=== PATIENT | male | born 1945 | race Hispanic/Latino ===

== ENCOUNTER 2019-01-27 19:12 | Inpatient (IN) | payer MEDICARE, OTHER ==
[~2019-01-27] VITALS: Ht 170.2 cm; Wt 95.3 kg
--- OUTSIDE RECORDS SUMMARY | 2019-01-27 19:15 | XMS REPORT ---
Author Author [facility] Address Unknown Phone Unavailable Care Team Providers Care Welfare Investigator Name Role Phone ART OGLESBY Unavailable Unavailable Joann WATSON Unavailable Unavailable JUANCHO SILVA Unavailable Unavailable Problems This patient has no known problems. Allergies, Adverse Reactions, Alerts This patient has no known allergies or adverse reactions. Medications This patient has no known medications. Results Test Description Test Time Test Comments Text Results Atomic Results Result Comments POCT-GLUCOSE METER 2019-01-01 12:54:00 POC-GLUCOSE METER (BEAKER) (test hsao=2760) 73 mg/dL 70-110 : TESTED AT [facility] [address] [facility], [address]: Aircraft Launch And Recovery Technician/River Guide [id number] for VELMA MCNAIR HEPATITIS B SURFACE [id number] 07:05:00* Test Item Value Reference Range Comments HEPATITIS B SURFACE ANTIGEN (2) (BEAKER) (test wcub=8185) Nonreactive Nonreactive BASIC METABOLIC [id number] 06:00:00* Test Item Value Reference Range Comments SODIUM (BEAKER) (test bgqy=963) 131 meq/L 136-145 POTASSIUM (BEAKER) (test tqqb=290) 3.8 meq/L 3.5-5.1 Specimen slightly hemolyzed CHLORIDE (BEAKER) (test uyip=454) 102 meq/L 98-107 CO2 (BEAKER) (test ayrw=518) 16 meq/L 22-29 BLOOD UREA NITROGEN (BEAKER) (test pbgb=201) 33 mg/dL 7-21 CREATININE (BEAKER) (test pemy=035) 6.00 mg/dL 0.57-1.25 Specimen slightly hemolyzed GLUCOSE RANDOM (BEAKER) (test zivu=909) 78 mg/dL 70-105 CALCIUM (BEAKER) (test otik=197) 7.9 mg/dL 8.4-10.2 EGFR (BEAKER) (test odqj=3640) 9 mL/min/1.73 sq m ESTIMATED GFR IS NOT ACCURATE CREATININE CLEARANCE IN PREDICTING GLOMERULAR FILTRATION RATE. ESTIMATED GFR IS NOT APPLICABLE FOR DIALYSIS PATIENTS. CBC W/PLT COUNT & AUTO [id number] 05:10:00* Test Item Value Reference Range Comments WHITE BLOOD CELL COUNT (BEAKER) (test swib=564) 10.8 K/ L 3.5-10.5 RED BLOOD CELL COUNT (BEAKER) (test hupd=607) 3.43 M/ L 4.63-6.08 HEMOGLOBIN (BEAKER) (test duxx=986) 11.2 GM/DL 13.7-17.5 HEMATOCRIT (BEAKER) (test xztg=687) 33.8 % 40.1-51.0 MEAN CORPUSCULAR VOLUME (BEAKER) (test bqqx=567) 98.5 fL 79.0-92.2 MEAN CORPUSCULAR HEMOGLOBIN (BEAKER) (test xvrc=590) 32.7 pg 25.7-32.2 MEAN CORPUSCULAR HEMOGLOBIN CONC (BEAKER) (test enpz=708) 33.1 GM/DL 32.3-36.5 RED CELL DISTRIBUTION WIDTH (BEAKER) (test ybme=902) 15.4 % 11.6-14.4 PLATELET COUNT (BEAKER) (test bcgf=092) 307 K/CU MM 150-450 MEAN PLATELET VOLUME (BEAKER) (test fzya=731) 9.7 fL 9.4-12.4 NUCLEATED RED BLOOD CELLS (BEAKER) (test nsmf=816) 0 /100 WBC 0-0 NEUTROPHILS RELATIVE PERCENT (BEAKER) (test kimq=157) 74 % LYMPHOCYTES RELATIVE PERCENT (BEAKER) (test kwnc=766) 16 % MONOCYTES RELATIVE PERCENT (BEAKER) (test jebe=099) 8 % EOSINOPHILS RELATIVE PERCENT (BEAKER) (test qqky=964) 1 % BASOPHILS RELATIVE PERCENT (BEAKER) (test iibv=101) 1 % NEUTROPHILS ABSOLUTE COUNT (BEAKER) (test ijzd=957) 7.94 K/ L 1.78-5.38 LYMPHOCYTES ABSOLUTE COUNT (BEAKER) (test zzvo=354) 1.72 K/ L 1.32-3.57 MONOCYTES ABSOLUTE COUNT (BEAKER) (test noal=813) 0.81 K/ L 0.30-0.82 EOSINOPHILS ABSOLUTE COUNT (BEAKER) (test pbip=847) 0.11 K/ L 0.04-0.54 BASOPHILS ABSOLUTE COUNT (BEAKER) (test wkzo=523) 0.10 K/ L 0.01-0.08 IMMATURE GRANULOCYTES-RELATIVE PERCENT (BEAKER) (test fkxb=5548) 1 % 0-1 POCT-GLUCOSE [id number] 22:45:00* Test Item Value Reference Range Comments POC-GLUCOSE METER (BEAKER) (test zfyf=7528) 124 mg/dL 70-110 : TESTED AT [address], [address]: Aircraft Launch And Recovery Technician/River Guide [id number] for NÉSTOR BUSTILLO POCT-GLUCOSE [id number] 17:44:00* Test Item Value Reference Range Comments POC-GLUCOSE METER (BEAKER) (test mpce=2751) 88 mg/dL 70-110 : TESTED AT [address], [address]: Aircraft Launch And Recovery Technician/River Guide VC=[id number] for Benny Martínez RAD, ABDOMEN/KUB, 1 VIEW [id number] 15:45:00Reason for exam:->stool burden FINAL REPORT Technique: Supine radiographs of the abdomen dated 12/31/2018. HISTORY: Stool burden Comparison: Abdominal radiograph dated 01/16/[address] of the abdomen and pelvis dated 12/30/2018 IMPRESSION:Stool is seen in the descending colon and rectum. No air-filled, dilated loops of bowel to suggest obstruction. No free intraperitoneal air. Bones are osteopenic. Degen erative changes are seen in the spine. Sternal wires are well aligned. Signed: Leonides Calixeport Verified Date/Time: 12/31/2018 15:45:38 Reading Loca tion: [facility] Mammo Reading Room -GLUCOSE [id number] 12:31:00* Test Item Value Reference Range Comments POC-GLUCOSE METER (BEAKER) (test wald=3635) 92 mg/dL 70-110 : TESTED AT [address], [address]: Aircraft Launch And Recovery Technician/River Guide [id number] for Benny Martínez POCT-GLUCOSE [id number] 07:54:00* Test Item Value Reference Range Comments POC-GLUCOSE METER (BEAKER) (test zrpo=0116) 100 mg/dL 70-110 : TESTED AT [facility] [address] [facility], [address]: Aircraft Launch And Recovery Technician/River Guide [id number] for Benny Martínez CBC W/PLT COUNT & AUTO [id number] 06:52:00* Test Item Value Reference Range Comments WHITE BLOOD CELL COUNT (BEAKER) (test mfvc=479) 12.3 K/ L 3.5-10.5 RED BLOOD CELL COUNT (BEAKER) (test thgd=194) 3.52 M/ L 4.63-6.08 HEMOGLOBIN (BEAKER) (test jxat=484) 11.6 GM/DL 13.7-17.5 HEMATOCRIT (BEAKER) (test crgc=799) 35.1 % 40.1-51.0 MEAN CORPUSCULAR VOLUME (BEAKER) (test aonb=174) 99.7 fL 79.0-92.2 MEAN CORPUSCULAR HEMOGLOBIN (BEAKER) (test ldfo=271) 33.0 pg 25.7-32.2 MEAN CORPUSCULAR HEMOGLOBIN CONC (BEAKER) (test gzqt=271) 33.0 GM/DL 32.3-36.5 RED CELL DISTRIBUTION WIDTH (BEAKER) (test myeu=601) 15.5 % 11.6-14.4 PLATELET COUNT (BEAKER) (test cmfh=530) 283 K/CU MM 150-450 MEAN PLATELET VOLUME (BEAKER) (test rxno=489) 9.7 fL 9.4-12.4 NUCLEATED RED BLOOD CELLS (BEAKER) (test gmok=243) 0 /100 WBC 0-0 NEUTROPHILS RELATIVE PERCENT (BEAKER) (test vcvd=549) 83 % LYMPHOCYTES RELATIVE PERCENT (BEAKER) (test qmdy=154) 10 % MONOCYTES RELATIVE PERCENT (BEAKER) (test hxxu=464) 6 % EOSINOPHILS RELATIVE PERCENT (BEAKER) (test hgpc=683) 1 % BASOPHILS RELATIVE PERCENT (BEAKER) (test dpug=858) 1 % NEUTROPHILS ABSOLUTE COUNT (BEAKER) (test nfjy=332) 10.11 K/ L 1.78-5.38 LYMPHOCYTES ABSOLUTE COUNT (BEAKER) (test ovim=270) 1.18 K/ L 1.32-3.57 MONOCYTES ABSOLUTE COUNT (BEAKER) (test yrjq=943) 0.74 K/ L 0.30-0.82 EOSINOPHILS ABSOLUTE COUNT (BEAKER) (test qcvc=535) 0.07 K/ L 0.04-0.54 BASOPHILS ABSOLUTE COUNT (BEAKER) (test ykhm=214) 0.07 K/ L 0.01-0.08 IMMATURE GRANULOCYTES-RELATIVE PERCENT (BEAKER) (test asrb=1325) 1 % 0-1 BASIC METABOLIC [id number] 05:33:00* Test Item Value Reference Range Comments SODIUM (BEAKER) (test zdst=926) 134 meq/L 136-145 POTASSIUM (BEAKER) (test mizu=116) 3.4 meq/L 3.5-5.1 CHLORIDE (BEAKER) (test yldd=906) 105 meq/L 98-107 CO2 (BEAKER) (test etcg=675) 21 meq/L 22-29 BLOOD UREA NITROGEN (BEAKER) (test zcmb=514) 21 mg/dL 7-21 CREATININE (BEAKER) (test mfqu=491) 4.22 mg/dL 0.57-1.25 GLUCOSE RANDOM (BEAKER) (test yyzt=381) 111 mg/dL 70-105 CALCIUM (BEAKER) (test bmux=425) 8.3 mg/dL 8.4-10.2 EGFR (BEAKER) (test gvmu=1747) 14 mL/min/1.73 sq m ESTIMATED GFR IS NOT ACCURATE CREATININE CLEARANCE IN PREDICTING GLOMERULAR FILTRATION RATE. ESTIMATED GFR IS NOT APPLICABLE FOR DIALYSIS PATIENTS. [id number] 05:32:00* Test Item Value Reference Range Comments PHOSPHORUS (BEAKER) (test ufeo=414) 3.2 mg/dL 2.3-4.7 [id number] 05:32:00* Test Item Value Reference Range Comments MAGNESIUM (BEAKER) (test qwlz=107) 2.0 mg/dL 1.6-2.6 CT, [id number] 22:53:00Is this for enterography?->NoFINAL REPORT CLINICAL HISTORY: Nausea and vomiting FINDINGS: Multiple axial images of the abdomen and pelvis were performed after the uncomplicated administration of IV contrast. Oral contrast was not given. This exam was performed according to our departmental dose-optimization program, which includes automated exposure control, adjustment of the mA and/or kV according to patient size and/or use of the iterative reconstruction technique. Comparison:N one. Lower chest: 5 mm noncalcified right middle lobe nodule, stable since 2016 and almost certainly benign. Adjacent to 3 mm nodule. No pleural effusion or pne umothorax. Atherosclerotic coronary artery calcifications. Liver: No significant findings. Gallbladder and biliary tree: No significant findings. Spleen: No sig nificant findings. Adrenal Glands: No significant findings. Kidneys and ureters: Atrophic kidneys. Several subcentimeter renal hypodensities in both kidneys, too small to characterize. Stomach and Duodenum: No significant findings. Pancreas: No significant findings. Bowel: Moderate fecal burden, including a moderate am ount of formed stool in the rectum. No bowel obstruction or pneumatosis intestin shanell. Appendix: Normal. Bladder: No significant findings. Major vascular structu res: Atherosclerotic calcifications Reproductive organs: Enlarged prostate gland Other: No free air, fluid or adenopathy Skeleton: No acute bony abnormality. Co nfluent bridging osteophytes stenosis/ankylosis of the visualized spine. Partial ly visualized fixation hardware in the left femur. IMPRESSION: Moderate fecal bu rden, including a ball of formed stool in the rectum, possibly reflecting consti pation/fecal impaction. Atrophic kidneys suggesting medical renal disease. Latonia d: Grady Su MDReport Verified Date/Time: 12/30/2018 22:53:17 Electro nically signed by: GRADY SU M.D. on 12/30/2018 10:53 PM TROPONIN I 2018-12-30 20:21:00* Test Item Value Reference Range Comments TROPONIN I (VASYL) (test npte=550) 0.03 ng/mL 0.00-0.03 Troponin I (TnI) levels must be interpreted in the context of the presenting sym ptoms and the clinical findings. Elevated TnI levels indicate myocardial damage, but are not specific for ischemic heart disease. Elevated TnI levels are seen in patients with other cardiac conditions (including myocarditis and congestive h eart failure), and slight TnI elevations occur in patients with other conditions , including sepsis, renal failure, acidosis, acute neurological disease, and per sistent tachyarrhythmia.BASIC METABOLIC [id number] 20:18:00* Test Item Value Reference Range Comments SODIUM (BEAKER) (test hncm=207) 134 meq/L 136-145 POTASSIUM (BEAKER) (test cwkt=142) 3.4 meq/L 3.5-5.1 CHLORIDE (BEAKER) (test nktk=731) 103 meq/L 98-107 CO2 (BEAKER) (test quxv=888) 21 meq/L 22-29 BLOOD UREA NITROGEN (BEAKER) (test fpdo=326) 17 mg/dL 7-21 CREATININE (BEAKER) (test mycw=754) 3.48 mg/dL 0.57-1.25 GLUCOSE RANDOM (BEAKER) (test typn=713) 143 mg/dL 70-105 CALCIUM (BEAKER) (test idhb=871) 8.7 mg/dL 8.4-10.2 EGFR (BEAKER) (test jhlo=5334) 17 mL/min/1.73 sq m ESTIMATED GFR IS NOT ACCURATE CREATININE CLEARANCE IN PREDICTING GLOMERULAR FILTRATION RATE. ESTIMATED GFR IS NOT APPLICABLE FOR DIALYSIS PATIENTS. [id number] 20:16:00* Test Item Value Reference Range Comments LIPASE (BEAKER) (test gcsh=769) 91 U/L 8-78 HEPATIC FUNCTION [id number] 20:16:00* Test Item Value Reference Range Comments TOTAL PROTEIN (BEAKER) (test ngar=462) 7.5 gm/dL 6.0-8.3 ALBUMIN (BEAKER) (test aemt=8021) 3.9 g/dL 3.5-5.0 BILIRUBIN TOTAL (BEAKER) (test owcq=080) 0.5 mg/dL 0.2-1.2 BILIRUBIN DIRECT (BEAKER) (test xxxi=728) 0.3 mg/dL 0.1-0.5 ALKALINE PHOSPHATASE (BEAKER) (test yltm=852) 127 U/L 40-150 AST (SGOT) (BEAKER) (test lfsq=140) 20 U/L 5-34 ALT (SGPT) (BEAKER) (test bnpe=327) 16 U/L 6-55 [id number] 19:38:00* Test Item Value Reference Range Comments PROTIME (BEAKER) (test tqkf=210) 14.2 seconds 11.9-14.2 INR (BEAKER) (test mpia=325) 1.2 <=5.9 PARTIAL THROMBOPLASTIN TIME (BEAKER) (test uwez=647) 31.2 seconds 22.5-36.0 Effective 08/04/2018: PT Reference Range ChangeNew: 11.9-14.2 Previous: 11.7-14. 7RECOMMENDED COUMADIN/WARFARIN INR THERAPY RANGESSTANDARD DOSE: 2.0-3.0 Include s: PROPHYLAXIS for venous thrombosis, systemic embolization; TREATMENT for venou s thrombosis and/or pulmonary embolus.HIGH RISK: Target INR is 2.5-3.5 for patie nts wiht mechanical heart valves.CBC W/PLT COUNT & AUTO [id number] 19:29:00* Test Item Value Reference Range Comments WHITE BLOOD CELL COUNT (BEAKER) (test qpzj=858) 12.7 K/ L 3.5-10.5 RED BLOOD CELL COUNT (BEAKER) (test tvlp=520) 3.77 M/ L 4.63-6.08 HEMOGLOBIN (BEAKER) (test bvni=406) 12.3 GM/DL 13.7-17.5 HEMATOCRIT (BEAKER) (test lejn=795) 36.7 % 40.1-51.0 MEAN CORPUSCULAR VOLUME (BEAKER) (test cesw=279) 97.3 fL 79.0-92.2 MEAN CORPUSCULAR HEMOGLOBIN (BEAKER) (test bwao=979) 32.6 pg 25.7-32.2 MEAN CORPUSCULAR HEMOGLOBIN CONC (BEAKER) (test xdim=884) 33.5 GM/DL 32.3-36.5 RED CELL DISTRIBUTION WIDTH (BEAKER) (test hrjk=794) 15.2 % 11.6-14.4 PLATELET COUNT (BEAKER) (test ewxy=752) 299 K/CU MM 150-450 MEAN PLATELET VOLUME (BEAKER) (test bbtb=497) 9.7 fL 9.4-12.4 NUCLEATED RED BLOOD CELLS (BEAKER) (test phtq=617) 0 /100 WBC 0-0 NEUTROPHILS RELATIVE PERCENT (BEAKER) (test pule=673) 86 % LYMPHOCYTES RELATIVE PERCENT (BEAKER) (test pibf=439) 6 % MONOCYTES RELATIVE PERCENT (BEAKER) (test hwjm=238) 7 % EOSINOPHILS RELATIVE PERCENT (BEAKER) (test mdpl=220) 0 % BASOPHILS RELATIVE PERCENT (BEAKER) (test wmkp=966) 1 % NEUTROPHILS ABSOLUTE COUNT (BEAKER) (test kgch=781) 10.95 K/ L 1.78-5.38 LYMPHOCYTES ABSOLUTE COUNT (BEAKER) (test ftpc=976) 0.75 K/ L 1.32-3.57 MONOCYTES ABSOLUTE COUNT (BEAKER) (test epxq=005) 0.82 K/ L 0.30-0.82 EOSINOPHILS ABSOLUTE COUNT (BEAKER) (test kmks=186) 0.05 K/ L 0.04-0.54 BASOPHILS ABSOLUTE COUNT (BEAKER) (test ifiu=082) 0.06 K/ L 0.01-0.08 IMMATURE GRANULOCYTES-RELATIVE PERCENT (BEAKER) (test krgh=8886) 1 % 0-1 ANG, AV-SHUNT, CATH INTRO WITH [id number] 12:42:00Reason for Exam:->esrd FINAL REPORT AV fistula examination : Pertinent clini willie information: Decreased clearanceModality: fluoroscopy and ultrasoundConscio us Sedation: noneDuring the procedure with conscious sedation, the patient was monitored continuously with pulse oximetry and electrocardiography by the attend ing physician and registered nurse. Physician Patient face to face intraservice time: [ ]Anesthesia: One percent Lidocaine injected subcutaneously at the ins ertion sites.Approach: Left forearm . One access site(s) For maximum ster ile barrier protection a mask, cap, sterile gloves, sterile drape, sterile gown, and a cutaneous antiseptic was utilized.Fluoroscopy time: 1.3 minutes. 19 images were submitted for interpretation Technique: After informed written consent was obtained, the patient was prepped and draped in the usual sterile manner. Ac cess was obtained using sonography of the fistula. Ultrasound was utilized to ev aluate patency and to decrease the risk of hematoma Images were archived to PAC S. The left forearm fistula was catheterized once . A guide wire was advanced into the fistula. A catheter was placed into the fistula. Multiple images were obtained. Arterial venous anastomosis:Spasm was encountered at the anastomosis. A small pseudoaneurysm was visualized at the radial artery. A hemodynamically significant stenosis was not visualized. There was no evidence of a draining vein stenosis. There was evidence of a pseudoaneurysm. The central vascu larity documents no abnormality. Vital signs were monitored continuously by a nurse and attending radiologist. Impression:Specifically a focal stenosis within the draining AV fistula was not identified. Two pseudoaneurysms were vis ualized. Spasm was encountered at the AV anastomosis with a small radial artery pseudoaneurysm. Signed: Jenny Cochran Verified Date/Time: 09/10/2018 12: 42:24 Reading Location: [facility] P048 Angio Body Reading Room C METABOLIC PANEL 2018-09-08 09:56:00* Test Item Value Reference Range Comments SODIUM (BEAKER) (test ivgi=475) 139 meq/L 136-145 POTASSIUM (BEAKER) (test wyfm=394) 3.9 meq/L 3.5-5.1 CHLORIDE (BEAKER) (test rxhr=396) 92 meq/L 98-107 CO2 (BEAKER) (test pzar=593) 34 meq/L 22-29 BLOOD UREA NITROGEN (BEAKER) (test wmrs=775) 39 mg/dL 7-21 CREATININE (BEAKER) (test buxh=317) 5.84 mg/dL 0.57-1.25 GLUCOSE RANDOM (BEAKER) (test chwa=540) 132 mg/dL 70-105 CALCIUM (BEAKER) (test oooc=679) 8.9 mg/dL 8.4-10.2 EGFR (BEAKER) (test dynp=2355) 10 mL/min/1.73 sq m ESTIMATED GFR IS NOT ACCURATE CREATININE CLEARANCE IN PREDICTING GLOMERULAR FILTRATION RATE. ESTIMATED GFR IS NOT APPLICABLE FOR DIALYSIS PATIENTS. [id number] 09:38:00* Test Item Value Reference Range Comments PARTIAL THROMBOPLASTIN TIME (BEAKER) (test fhmx=456) 24.3 seconds 22.5-36.0 PROTHROMBIN TIME/[id number] 09:37:00* Test Item Value Reference Range Comments PROTIME (BEAKER) (test cgki=627) 14.3 seconds 11.9-14.2 INR (BEAKER) (test jyna=899) 1.2 <=5.9 Effective 08/04/2018: PT Reference Range ChangeNew: 11.9-14.2 Previous: 11.7-14. 7RECOMMENDED COUMADIN/WARFARIN INR THERAPY RANGESSTANDARD DOSE: 2.0-3.0 Include s: PROPHYLAXIS for venous thrombosis, systemic embolization; TREATMENT for venou s thrombosis and/or pulmonary embolus.HIGH RISK: Target INR is 2.5-3.5 for patie nts wiht mechanical heart valves.CBC W/PLT COUNT & AUTO [id number] 09:30:00* Test Item Value Reference Range Comments WHITE BLOOD CELL COUNT (BEAKER) (test ocqh=812) 7.1 K/ L 3.5-10.5 RED BLOOD CELL COUNT (BEAKER) (test rgrq=425) 3.81 M/ L 4.63-6.08 HEMOGLOBIN (BEAKER) (test hodh=343) 12.0 GM/DL 13.7-17.5 HEMATOCRIT (BEAKER) (test mdth=132) 37.1 % 40.1-51.0 MEAN CORPUSCULAR VOLUME (BEAKER) (test pyri=457) 97.4 fL 79.0-92.2 MEAN CORPUSCULAR HEMOGLOBIN (BEAKER) (test hlkb=316) 31.5 pg 25.7-32.2 MEAN CORPUSCULAR HEMOGLOBIN CONC (BEAKER) (test nfjs=289) 32.3 GM/DL 32.3-36.5 RED CELL DISTRIBUTION WIDTH (BEAKER) (test jrsl=534) 18.4 % 11.6-14.4 PLATELET COUNT (BEAKER) (test ipfp=937) 318 K/CU MM 150-450 MEAN PLATELET VOLUME (BEAKER) (test zext=667) 9.0 fL 9.4-12.4 NUCLEATED RED BLOOD CELLS (BEAKER) (test puxk=971) 0 /100 WBC 0-0 NEUTROPHILS RELATIVE PERCENT (BEAKER) (test srxs=908) 69 % LYMPHOCYTES RELATIVE PERCENT (BEAKER) (test qpwh=337) 20 % MONOCYTES RELATIVE PERCENT (BEAKER) (test wnhe=042) 8 % EOSINOPHILS RELATIVE PERCENT (BEAKER) (test gkyw=026) 1 % BASOPHILS RELATIVE PERCENT (BEAKER) (test nprc=066) 1 % NEUTROPHILS ABSOLUTE COUNT (BEAKER) (test ujoo=597) 4.88 K/ L 1.78-5.38 LYMPHOCYTES ABSOLUTE COUNT (BEAKER) (test wmrk=497) 1.39 K/ L 1.32-3.57 MONOCYTES ABSOLUTE COUNT (BEAKER) (test ffjd=630) 0.58 K/ L 0.30-0.82 EOSINOPHILS ABSOLUTE COUNT (BEAKER) (test hwbb=540) 0.09 K/ L 0.04-0.54 BASOPHILS ABSOLUTE COUNT (BEAKER) (test yptn=660) 0.06 K/ L 0.01-0.08 IMMATURE GRANULOCYTES-RELATIVE PERCENT (BEAKER) (test oidk=9229) 1 % 0-1 POCT-GLUCOSE [id number] 16:58:00* Test Item Value Reference Range Comments POC-GLUCOSE METER (BEAKER) (test bifm=2708) 200 mg/dL 70-110 TESTED AT [address] [address] [id number] 16:22:00* Test Item Value Reference Range Comments CARBAMAZEPINE LEVEL (BEAKER) (test flty=624) 4.6 ug/mL 4.0-12.0 BASIC METABOLIC [id number] 15:23:00* Test Item Value Reference Range Comments SODIUM (BEAKER) (test swwo=766) 134 meq/L 136-145 POTASSIUM (BEAKER) (test mwwu=029) 5.1 meq/L 3.5-5.1 CHLORIDE (BEAKER) (test ddpm=583) 91 meq/L 98-107 CO2 (BEAKER) (test bjpa=476) 21 meq/L 22-29 BLOOD UREA NITROGEN (BEAKER) (test qdgp=386) 83 mg/dL 7-21 CREATININE (BEAKER) (test zzpr=996) 9.54 mg/dL 0.57-1.25 GLUCOSE RANDOM (BEAKER) (test yman=387) 186 mg/dL 70-105 CALCIUM (BEAKER) (test ughu=533) 9.5 mg/dL 8.4-10.2 EGFR (BEAKER) (test azix=7364) 5 mL/min/1.73 sq m ESTIMATED GFR IS NOT ACCURATE CREATININE CLEARANCE IN PREDICTING GLOMERULAR FILTRATION RATE. ESTIMATED GFR IS NOT APPLICABLE FOR DIALYSIS PATIENTS. [id number] 15:12:00* Test Item Value Reference Range Comments PHOSPHORUS (BEAKER) (test jryd=068) 6.6 mg/dL 2.3-4.7 POCT-GLUCOSE [id number] 13:54:00* Test Item Value Reference Range Comments POC-GLUCOSE METER (BEAKER) (test vcek=4998) 136 mg/dL 70-110 TESTED AT [address] [address] POCT-GLUCOSE [id number] 12:37:00* Test Item Value Reference Range Comments POC-GLUCOSE METER (BEAKER) (test jjrc=7324) 107 mg/dL 70-110 TESTED AT [address] [address] POCT-GLUCOSE [id number] 07:30:00* Test Item Value Reference Range Comments POC-GLUCOSE METER (BEAKER) (test xkpu=0769) 188 mg/dL 70-110 TESTED AT [address] [address] POCT-GLUCOSE [id number] 21:02:00* Test Item Value Reference Range Comments POC-GLUCOSE METER (BEAKER) (test xxqa=8320) 233 mg/dL 70-110 TESTED AT [address] [address] POCT-GLUCOSE [id number] 17:22:00* Test Item Value Reference Range Comments POC-GLUCOSE METER (BEAKER) (test bpzb=7196) 259 mg/dL 70-110 TESTED AT [address] [address] POCT-GLUCOSE [id number] 13:08:00* Test Item Value Reference Range Comments POC-GLUCOSE METER (BEAKER) (test wrtl=7499) 256 mg/dL 70-110 TESTED AT [address] [address] POCT-GLUCOSE [id number] 07:34:00* Test Item Value Reference Range Comments POC-GLUCOSE METER (BEAKER) (test vpab=9227) 271 mg/dL 70-110 TESTED AT [address] [address] HEMOGLOBIN AND [id number] 06:50:00* Test Item Value Reference Range Comments HEMOGLOBIN (BEAKER) (test rfej=186) 10.2 GM/DL 13.7-17.5 HEMATOCRIT (BEAKER) (test akyy=094) 31.1 % 40.1-51.0 POCT-GLUCOSE [id number] 21:41:00* Test Item Value Reference Range Comments POC-GLUCOSE METER (BEAKER) (test wmec=3270) 246 mg/dL 70-110 TESTED AT [address] [address] POCT-GLUCOSE [id number] 19:03:00* Test Item Value Reference Range Comments POC-GLUCOSE METER (BEAKER) (test psem=9630) 262 mg/dL 70-110 TESTED AT [facility] [address] [facility] [address] POCT-GLUCOSE [id number] 17:57:00* Test Item Value Reference Range Comments POC-GLUCOSE METER (BEAKER) (test glhf=6305) 230 mg/dL 70-110 TESTED AT [place] [id number] [facility] [address] POCT-GLUCOSE [id number] 14:15:00* Test Item Value Reference Range Comments POC-GLUCOSE METER (BEAKER) (test bfwr=6359) 202 mg/dL 70-110 TESTED AT [address] [address] POCT-GLUCOSE [id number] 09:53:00* Test Item Value Reference Range Comments POC-GLUCOSE METER (BEAKER) (test akkv=0888) 220 mg/dL 70-110 TESTED AT [address] [address] POCT-GLUCOSE [id number] 07:30:00* Test Item Value Reference Range Comments POC-GLUCOSE METER (BEAKER) (test hqvc=2005) 202 mg/dL 70-110 TESTED AT [place] [id number] [facility] [address] BASIC METABOLIC [id number] 06:08:00* Test Item Value Reference Range Comments SODIUM (BEAKER) (test tmuc=001) 131 meq/L 136-145 POTASSIUM (BEAKER) (test nuyt=314) 5.2 meq/L 3.5-5.1 Specimen slightly hemolyzed CHLORIDE (BEAKER) (test gqim=408) 92 meq/L 98-107 CO2 (BEAKER) (test hbtn=764) 22 meq/L 22-29 BLOOD UREA NITROGEN (BEAKER) (test vjnh=043) 110 mg/dL 7-21 CREATININE (BEAKER) (test uczu=939) 10.87 mg/dL 0.57-1.25 Specimen slightly hemolyzed GLUCOSE RANDOM (BEAKER) (test afeb=449) 176 mg/dL 70-105 CALCIUM (BEAKER) (test kqag=432) 8.2 mg/dL 8.4-10.2 EGFR (BEAKER) (test suhk=0148) 5 mL/min/1.73 sq m ESTIMATED GFR IS NOT ACCURATE CREATININE CLEARANCE IN PREDICTING GLOMERULAR FILTRATION RATE. ESTIMATED GFR IS NOT APPLICABLE FOR DIALYSIS PATIENTS. [id number] 06:06:00* Test Item Value Reference Range Comments MAGNESIUM (BEAKER) (test sost=872) 2.8 mg/dL 1.6-2.6 Specimen slightly hemolyzed [id number] 06:06:00* Test Item Value Reference Range Comments PHOSPHORUS (BEAKER) (test evvr=940) 6.9 mg/dL 2.3-4.7 Specimen slightly hemolyzed POCT-GLUCOSE [id number] 22:14:00* Test Item Value Reference Range Comments POC-GLUCOSE METER (BEAKER) (test frnb=1320) 240 mg/dL 70-110 TESTED AT [address] [address] POCT-GLUCOSE [id number] 17:40:00* Test Item Value Reference Range Comments POC-GLUCOSE METER (BEAKER) (test ntlu=7762) 252 mg/dL 70-110 TESTED AT [address] [address] POCT-GLUCOSE [id number] 13:04:00* Test Item Value Reference Range Comments POC-GLUCOSE METER (BEAKER) (test ofpr=5108) 179 mg/dL 70-110 TESTED AT [address] [address] POCT-GLUCOSE [id number] 08:34:00* Test Item Value Reference Range Comments POC-GLUCOSE METER (BEAKER) (test xpgq=2690) 184 mg/dL 70-110 TESTED AT [address] [address] BASIC METABOLIC [id number] 07:14:00* Test Item Value Reference Range Comments SODIUM (BEAKER) (test njyr=167) 137 meq/L 136-145 POTASSIUM (BEAKER) (test xmju=761) 4.6 meq/L 3.5-5.1 CHLORIDE (BEAKER) (test jmeu=963) 94 meq/L 98-107 CO2 (BEAKER) (test hoqj=233) 25 meq/L 22-29 BLOOD UREA NITROGEN (BEAKER) (test zbca=515) 81 mg/dL 7-21 CREATININE (BEAKER) (test nyuf=300) 8.82 mg/dL 0.57-1.25 GLUCOSE RANDOM (BEAKER) (test nioc=015) 123 mg/dL 70-105 CALCIUM (BEAKER) (test wkcn=329) 9.1 mg/dL 8.4-10.2 EGFR (BEAKER) (test xlby=3520) 6 mL/min/1.73 sq m ESTIMATED GFR IS NOT ACCURATE CREATININE CLEARANCE IN PREDICTING GLOMERULAR FILTRATION RATE. ESTIMATED GFR IS NOT APPLICABLE FOR DIALYSIS PATIENTS. CBC W/PLT COUNT & AUTO [id number] 06:20:00* Test Item Value Reference Range Comments WHITE BLOOD CELL COUNT (BEAKER) (test vmnw=860) 8.0 K/ L 3.5-10.5 RED BLOOD CELL COUNT (BEAKER) (test pwfm=815) 2.54 M/ L 4.63-6.08 HEMOGLOBIN (BEAKER) (test buml=525) 8.2 GM/DL 13.7-17.5 HEMATOCRIT (BEAKER) (test bxky=686) 25.1 % 40.1-51.0 MEAN CORPUSCULAR VOLUME (BEAKER) (test wjnw=153) 98.8 fL 79.0-92.2 MEAN CORPUSCULAR HEMOGLOBIN (BEAKER) (test ysis=768) 32.3 pg 25.7-32.2 MEAN CORPUSCULAR HEMOGLOBIN CONC (BEAKER) (test lahy=912) 32.7 GM/DL 32.3-36.5 RED CELL DISTRIBUTION WIDTH (BEAKER) (test fgdu=108) 13.6 % 11.6-14.4 PLATELET COUNT (BEAKER) (test rkls=389) 414 K/CU MM 150-450 MEAN PLATELET VOLUME (BEAKER) (test rbok=564) 10.2 fL 9.4-12.4 NUCLEATED RED BLOOD CELLS (BEAKER) (test fmhr=618) 0 /100 WBC 0-0 NEUTROPHILS RELATIVE PERCENT (BEAKER) (test yppf=444) 61 % LYMPHOCYTES RELATIVE PERCENT (BEAKER) (test sbkb=954) 23 % MONOCYTES RELATIVE PERCENT (BEAKER) (test fucy=082) 10 % EOSINOPHILS RELATIVE PERCENT (BEAKER) (test wodq=759) 3 % BASOPHILS RELATIVE PERCENT (BEAKER) (test ctii=277) 1 % NEUTROPHILS ABSOLUTE COUNT (BEAKER) (test wdvu=181) 4.87 K/ L 1.78-5.38 LYMPHOCYTES ABSOLUTE COUNT (BEAKER) (test kywc=390) 1.88 K/ L 1.32-3.57 MONOCYTES ABSOLUTE COUNT (BEAKER) (test pdup=962) 0.84 K/ L 0.30-0.82 EOSINOPHILS ABSOLUTE COUNT (BEAKER) (test osir=363) 0.21 K/ L 0.04-0.54 BASOPHILS ABSOLUTE COUNT (BEAKER) (test wzhq=398) 0.06 K/ L 0.01-0.08 IMMATURE GRANULOCYTES-RELATIVE PERCENT (BEAKER) (test mqim=5762) 2 % 0-1 POCT-GLUCOSE [id number] 22:13:00* Test Item Value Reference Range Comments POC-GLUCOSE METER (BEAKER) (test dwmo=3183) 137 mg/dL 70-110 TESTED AT [address] [address] POCT-GLUCOSE [id number] 17:11:00* Test Item Value Reference Range Comments POC-GLUCOSE METER (BEAKER) (test pzdz=8787) 207 mg/dL 70-110 TESTED AT [address] [address] POCT-GLUCOSE [id number] 13:39:00* Test Item Value Reference Range Comments POC-GLUCOSE METER (BEAKER) (test fpnc=8515) 217 mg/dL 70-110 TESTED AT [address] [address] POCT-GLUCOSE [id number] 08:55:00* Test Item Value Reference Range Comments POC-GLUCOSE METER (BEAKER) (test sfzs=4040) 195 mg/dL 70-110 TESTED AT [address] [address] BASIC METABOLIC [id number] 07:56:00* Test Item Value Reference Range Comments SODIUM (BEAKER) (test metg=111) 138 meq/L 136-145 POTASSIUM (BEAKER) (test mpcg=495) 4.4 meq/L 3.5-5.1 CHLORIDE (BEAKER) (test nxrs=696) 95 meq/L 98-107 CO2 (BEAKER) (test qavu=290) 26 meq/L 22-29 BLOOD UREA NITROGEN (BEAKER) (test uhmx=721) 54 mg/dL 7-21 CREATININE (BEAKER) (test vsto=004) 6.88 mg/dL 0.57-1.25 GLUCOSE RANDOM (BEAKER) (test kihx=155) 160 mg/dL 70-105 CALCIUM (BEAKER) (test rogi=869) 9.4 mg/dL 8.4-10.2 EGFR (BEAKER) (test lrko=9869) 8 mL/min/1.73 sq m ESTIMATED GFR IS NOT ACCURATE CREATININE CLEARANCE IN PREDICTING GLOMERULAR FILTRATION RATE. ESTIMATED GFR IS NOT APPLICABLE FOR DIALYSIS PATIENTS. CBC W/PLT COUNT & AUTO [id number] 07:27:00* Test Item Value Reference Range Comments WHITE BLOOD CELL COUNT (BEAKER) (test dnff=712) 6.9 K/ L 3.5-10.5 RED BLOOD CELL COUNT (BEAKER) (test naky=424) 2.58 M/ L 4.63-6.08 HEMOGLOBIN (BEAKER) (test pixb=633) 8.4 GM/DL 13.7-17.5 HEMATOCRIT (BEAKER) (test wetd=321) 25.6 % 40.1-51.0 MEAN CORPUSCULAR VOLUME (BEAKER) (test beir=790) 99.2 fL 79.0-92.2 MEAN CORPUSCULAR HEMOGLOBIN (BEAKER) (test zpqr=562) 32.6 pg 25.7-32.2 MEAN CORPUSCULAR HEMOGLOBIN CONC (BEAKER) (test zvpy=633) 32.8 GM/DL 32.3-36.5 RED CELL DISTRIBUTION WIDTH (BEAKER) (test lzbl=205) 13.8 % 11.6-14.4 PLATELET COUNT (BEAKER) (test qcvm=370) 402 K/CU MM 150-450 MEAN PLATELET VOLUME (BEAKER) (test njcj=895) 10.1 fL 9.4-12.4 NUCLEATED RED BLOOD CELLS (BEAKER) (test fbex=002) 0 /100 WBC 0-0 NEUTROPHILS RELATIVE PERCENT (BEAKER) (test ccqy=401) 66 % LYMPHOCYTES RELATIVE PERCENT (BEAKER) (test lxum=014) 20 % MONOCYTES RELATIVE PERCENT (BEAKER) (test lpwp=556) 10 % EOSINOPHILS RELATIVE PERCENT (BEAKER) (test ngjc=856) 2 % BASOPHILS RELATIVE PERCENT (BEAKER) (test pzha=079) 1 % NEUTROPHILS ABSOLUTE COUNT (BEAKER) (test wmer=595) 4.53 K/ L 1.78-5.38 LYMPHOCYTES ABSOLUTE COUNT (BEAKER) (test jkqr=643) 1.39 K/ L 1.32-3.57 MONOCYTES ABSOLUTE COUNT (BEAKER) (test ncav=250) 0.70 K/ L 0.30-0.82 EOSINOPHILS ABSOLUTE COUNT (BEAKER) (test ywqq=601) 0.15 K/ L 0.04-0.54 BASOPHILS ABSOLUTE COUNT (BEAKER) (test clcz=978) 0.05 K/ L 0.01-0.08 IMMATURE GRANULOCYTES-RELATIVE PERCENT (BEAKER) (test uece=7706) 1 % 0-1 POCT-GLUCOSE [id number] 23:10:00* Test Item Value Reference Range Comments POC-GLUCOSE METER (BEAKER) (test exbu=1296) 140 mg/dL 70-110 TESTED AT [address] [address] POCT-GLUCOSE [id number] 16:58:00* Test Item Value Reference Range Comments POC-GLUCOSE METER (BEAKER) (test hhcj=2919) 188 mg/dL 70-110 TESTED AT [address] [address] POCT-GLUCOSE [id number] 13:05:00* Test Item Value Reference Range Comments POC-GLUCOSE METER (BEAKER) (test rend=1088) 167 mg/dL 70-110 TESTED AT [address] [address] BASIC METABOLIC [id number] 08:20:00* Test Item Value Reference Range Comments SODIUM (BEAKER) (test jlmf=857) 138 meq/L 136-145 POTASSIUM (BEAKER) (test fsgo=100) 5.0 meq/L 3.5-5.1 CHLORIDE (BEAKER) (test yswe=818) 96 meq/L 98-107 CO2 (BEAKER) (test ymta=164) 26 meq/L 22-29 BLOOD UREA NITROGEN (BEAKER) (test mneh=489) 70 mg/dL 7-21 CREATININE (BEAKER) (test lecv=237) 8.82 mg/dL 0.57-1.25 GLUCOSE RANDOM (BEAKER) (test nxxc=363) 190 mg/dL 70-105 CALCIUM (BEAKER) (test yufp=351) 9.5 mg/dL 8.4-10.2 EGFR (BEAKER) (test nbjf=5835) 6 mL/min/1.73 sq m ESTIMATED GFR IS NOT ACCURATE CREATININE CLEARANCE IN PREDICTING GLOMERULAR FILTRATION RATE. ESTIMATED GFR IS NOT APPLICABLE FOR DIALYSIS PATIENTS. POCT-GLUCOSE [id number] 07:44:00* Test Item Value Reference Range Comments POC-GLUCOSE METER (BEAKER) (test eqwa=9702) 232 mg/dL 70-110 TESTED AT [facility] [address] [facility] [address] CBC W/PLT COUNT & AUTO [id number] 07:06:00* Test Item Value Reference Range Comments WHITE BLOOD CELL COUNT (BEAKER) (test drma=068) 8.2 K/ L 3.5-10.5 RED BLOOD CELL COUNT (BEAKER) (test uztm=985) 2.97 M/ L 4.63-6.08 HEMOGLOBIN (BEAKER) (test ncvd=921) 9.5 GM/DL 13.7-17.5 HEMATOCRIT (BEAKER) (test kgra=717) 29.3 % 40.1-51.0 MEAN CORPUSCULAR VOLUME (BEAKER) (test ozin=126) 98.7 fL 79.0-92.2 MEAN CORPUSCULAR HEMOGLOBIN (BEAKER) (test orcz=539) 32.0 pg 25.7-32.2 MEAN CORPUSCULAR HEMOGLOBIN CONC (BEAKER) (test uksl=358) 32.4 GM/DL 32.3-36.5 RED CELL DISTRIBUTION WIDTH (BEAKER) (test fgpl=253) 13.8 % 11.6-14.4 PLATELET COUNT (BEAKER) (test dfef=492) 346 K/CU MM 150-450 MEAN PLATELET VOLUME (BEAKER) (test rema=074) 10.4 fL 9.4-12.4 NUCLEATED RED BLOOD CELLS (BEAKER) (test jlnm=555) 0 /100 WBC 0-0 NEUTROPHILS RELATIVE PERCENT (BEAKER) (test yggr=041) 76 % LYMPHOCYTES RELATIVE PERCENT (BEAKER) (test nacv=737) 15 % MONOCYTES RELATIVE PERCENT (BEAKER) (test klrt=812) 8 % EOSINOPHILS RELATIVE PERCENT (BEAKER) (test ijia=608) 1 % BASOPHILS RELATIVE PERCENT (BEAKER) (test dnjv=177) 1 % NEUTROPHILS ABSOLUTE COUNT (BEAKER) (test nqam=148) 6.17 K/ L 1.78-5.38 LYMPHOCYTES ABSOLUTE COUNT (BEAKER) (test lapm=742) 1.18 K/ L 1.32-3.57 MONOCYTES ABSOLUTE COUNT (BEAKER) (test omyx=704) 0.61 K/ L 0.30-0.82 EOSINOPHILS ABSOLUTE COUNT (BEAKER) (test ijai=128) 0.10 K/ L 0.04-0.54 BASOPHILS ABSOLUTE COUNT (BEAKER) (test iayx=882) 0.05 K/ L 0.01-0.08 IMMATURE GRANULOCYTES-RELATIVE PERCENT (BEAKER) (test bddc=4081) 1 % 0-1 POCT-GLUCOSE [id number] 22:05:00* Test Item Value Reference Range Comments POC-GLUCOSE METER (BEAKER) (test ceul=5198) 209 mg/dL 70-110 TESTED AT [facility] [address] [facility] [address] POCT-GLUCOSE [id number] 17:28:00* Test Item Value Reference Range Comments POC-GLUCOSE METER (BEAKER) (test dasm=0541) 240 mg/dL 70-110 TESTED AT [place] [id number] [facility] [address] PUL PERF IMAGING, PARTIC, [id number] 16:50:00FINAL REPORT PROCEDURE: V/Q LUNG SCAN CPT CODE: 19009 INDICATION: Chest pain PROTOCOL: 10.9 mCi of Xe-133 gas was administered by inhalation. Single breath and rebreathing/washout images were obtained in the anterior and the posterior projections. 4.1 mCi of Tc-99m MAA was then injected intravenously, and static perfusion images were obtained in multiple projections. FINDINGS: Ventilation: Limited evaluation due to failure of adequate patient cooperation. However, initial tracer distribution appears physiological. Washout is difficult to assess but in setting of the limited eval uation appears to be essentially normal. Perfusion: Tracer distribution is physiological. IMPRESSION: Normal perfusion lung scan. Signed: Art Anderson MDReport Verified Date/Time: 01/16/2017 16:50:19 Reading Location: [address] Reading Room TINE KINASE (CK), TOTAL AND [id number] 15:46:00* Test Item Value Reference Range Comments CREATINE KINASE TOTAL (BEAKER) (test xzai=101) 249 U/L 29-200 CREATINE KINASE-MB (BEAKER) (test klbs=664) 1.5 ng/mL 0.0-6.6 CREATINE KINASE-MB INDEX (BEAKER) (test tpxe=177) 0.6 % CK-MB Reference Range:<6.7 Normal6.7-10.0 Borderline>10.0 Abnormal TROPONIN [id number] 15:46:00* Test Item Value Reference Range Comments TROPONIN I (BEAKER) (test ytwt=087) 0.03 ng/mL 0.00-0.03 Troponin I (TnI) levels must be interpreted in the context of the presenting sym ptoms and the clinical findings. Elevated TnI levels indicate myocardial damage, but are not specific for ischemic heart disease. Elevated TnI levels are seen in patients with other cardiac conditions (including myocarditis and congestive h eart failure), and slight TnI elevations occur in patients with other conditions , including sepsis, renal failure, acidosis, acute neurological disease, and per sistent tachyarrhythmia.HEMOGLOBIN AND [id number] 15:40:00* Test Item Value Reference Range Comments HEMOGLOBIN (BEAKER) (test pzle=168) 8.3 GM/DL 13.7-17.5 HEMATOCRIT (BEAKER) (test vbsd=149) 25.0 % 40.1-51.0 RAD, ABDOMEN/KUB, 1 VIEW [id number] 11:47:00Reason for exam:->nausea vomitingShould this be performed at the bedside?->YesFINAL REPORT TECHNIQUE: Four views of the abdomen dated 01/16/2017 HISTORY: Nausea, vomiting COMPARISON: CT scan of the abdomen and pelvis dated 11/12/2015. IMPRESSION:Imaged to was generated by motion artifact. No air-filled, dilated loops of bowel to suggest obstruction. No free intraperitoneal air. No abnormal soft tissue mass. The patient is status post fixation of a left femoral fracture. Visualized lung bases are clear. Signed: Leonides Blake Verified Date/Time: 01/16/2017 11:47:43 Reading Location: [facility] Radiology Reading Room -GLUCOSE [id number] 11:32:00* Test Item Value Reference Range Comments POC-GLUCOSE METER (BEAKER) (test svav=2791) 262 mg/dL 70-110 TESTED AT [address] [address] CREATINE KINASE (CK), TOTAL AND [id number] 09:46:00* Test Item Value Reference Range Comments CREATINE KINASE TOTAL (BEAKER) (test xwrn=160) 303 U/L 29-200 CREATINE KINASE-MB (BEAKER) (test vaza=590) 1.9 ng/mL 0.0-6.6 CREATINE KINASE-MB INDEX (BEAKER) (test lbar=152) 0.6 % CK-MB Reference Range:<6.7 Normal6.7-10.0 Borderline>10.0 Abnormal TROPONIN [id number] 09:46:00* Test Item Value Reference Range Comments TROPONIN I (BEAKER) (test zchg=532) 0.04 ng/mL 0.00-0.03 Troponin I (TnI) levels must be interpreted in the context of the presenting sym ptoms and the clinical findings. Elevated TnI levels indicate myocardial damage, but are not specific for ischemic heart disease. Elevated TnI levels are seen in patients with other cardiac conditions (including myocarditis and congestive h eart failure), and slight TnI elevations occur in patients with other conditions , including sepsis, renal failure, acidosis, acute neurological disease, and per sistent tachyarrhythmia.POCT-GLUCOSE [id number] 08:57:00* Test Item Value Reference Range Comments POC-GLUCOSE METER (BEAKER) (test junu=6920) 273 mg/dL 70-110 TESTED AT [address] [address] POCT-GLUCOSE [id number] 01:24:00* Test Item Value Reference Range Comments POC-GLUCOSE METER (BEAKER) (test uzmm=6885) 246 mg/dL 70-110 TESTED AT [address] [address] POCT-GLUCOSE [id number] 23:48:00* Test Item Value Reference Range Comments POC-GLUCOSE METER (BEAKER) (test tsyh=1713) 190 mg/dL 70-110 TESTED AT [address] [address] [id number] 19:19:00* Test Item Value Reference Range Comments PHOSPHORUS (BEAKER) (test xkjj=455) 6.4 mg/dL 2.3-4.7 BASIC METABOLIC [id number] 19:19:00* Test Item Value Reference Range Comments SODIUM (BEAKER) (test rnwm=405) 135 meq/L 136-145 POTASSIUM (BEAKER) (test tcjt=584) 4.8 meq/L 3.5-5.1 CHLORIDE (BEAKER) (test vymw=423) 95 meq/L 98-107 CO2 (BEAKER) (test thnj=261) 28 meq/L 22-29 BLOOD UREA NITROGEN (BEAKER) (test zbdu=235) 86 mg/dL 7-21 CREATININE (BEAKER) (test jain=803) 11.50 mg/dL 0.57-1.25 GLUCOSE RANDOM (BEAKER) (test ykhw=605) 180 mg/dL 70-105 CALCIUM (BEAKER) (test zugk=712) 8.2 mg/dL 8.4-10.2 EGFR (BEAKER) (test nttr=0655) 4 mL/min/1.73 sq m ESTIMATED GFR IS NOT ACCURATE CREATININE CLEARANCE IN PREDICTING GLOMERULAR FILTRATION RATE. ESTIMATED GFR IS NOT APPLICABLE FOR DIALYSIS PATIENTS. CBC W/PLT COUNT & AUTO [id number] 18:55:00* Test Item Value Reference Range Comments WHITE BLOOD CELL COUNT (BEAKER) (test gdzc=367) 6.5 K/ L 3.5-10.5 RED BLOOD CELL COUNT (BEAKER) (test tsai=081) 2.37 M/ L 4.63-6.08 HEMOGLOBIN (BEAKER) (test bpfu=308) 7.7 GM/DL 13.7-17.5 HEMATOCRIT (BEAKER) (test lkxs=542) 23.1 % 40.1-51.0 MEAN CORPUSCULAR VOLUME (BEAKER) (test kona=955) 97.5 fL 79.0-92.2 MEAN CORPUSCULAR HEMOGLOBIN (BEAKER) (test bzhe=947) 32.5 pg 25.7-32.2 MEAN CORPUSCULAR HEMOGLOBIN CONC (BEAKER) (test hhwu=633) 33.3 GM/DL 32.3-36.5 RED CELL DISTRIBUTION WIDTH (BEAKER) (test trvp=458) 14.0 % 11.6-14.4 PLATELET COUNT (BEAKER) (test zlng=690) 242 K/CU MM 150-450 MEAN PLATELET VOLUME (BEAKER) (test okvl=532) 9.9 fL 9.4-12.4 NUCLEATED RED BLOOD CELLS (BEAKER) (test rzqd=711) 0 /100 WBC 0-0 NEUTROPHILS RELATIVE PERCENT (BEAKER) (test tlbi=458) 71 % LYMPHOCYTES RELATIVE PERCENT (BEAKER) (test lozz=454) 20 % MONOCYTES RELATIVE PERCENT (BEAKER) (test exjb=713) 6 % EOSINOPHILS RELATIVE PERCENT (BEAKER) (test ywma=639) 2 % BASOPHILS RELATIVE PERCENT (BEAKER) (test hchh=280) 1 % NEUTROPHILS ABSOLUTE COUNT (BEAKER) (test nrxx=123) 4.60 K/ L 1.78-5.38 LYMPHOCYTES ABSOLUTE COUNT (BEAKER) (test snnk=184) 1.27 K/ L 1.32-3.57 MONOCYTES ABSOLUTE COUNT (BEAKER) (test qkxg=034) 0.39 K/ L 0.30-0.82 EOSINOPHILS ABSOLUTE COUNT (BEAKER) (test qmls=258) 0.12 K/ L 0.04-0.54 BASOPHILS ABSOLUTE COUNT (BEAKER) (test gylx=462) 0.03 K/ L 0.01-0.08 IMMATURE GRANULOCYTES-RELATIVE PERCENT (BEAKER) (test vxnb=7305) 1 % 0-1 POCT-GLUCOSE [id number] 13:49:00* Test Item Value Reference Range Comments POC-GLUCOSE METER (BEAKER) (test tqvq=5114) 204 mg/dL 70-110 TESTED AT [facility] [address] [facility] [address] RAD, KNEE, 1 OR 2 VIEWS, [id number] 11:52:00Reason for exam:->left knee painShould this be performed at the bedside?->YesFINAL REPORT Radiograph of the left knee Reason for exam: left knee pain Comparison: No priors Discussion: Frontal and lateral views of the left knee demonstrate advanced degenerative change, most pronounced in the medial compartment. No evidence of acute fracture, or dislocation. A well-corticated ossific density lateral to the femoral condyle probably reflects heterotopic ossification or loose body. No significant joint effusion is identified. There is mild peripheral vascular calcification. Soft tissues are otherwise unremark able. Impressions: Advanced left knee osteoarthritis. Signed: Heydi Ma [facility] Verified Date/Time: 01/15/2017 11:52:06 Reading Location: [facility] Reading Room -GLUCOSE [id number] 08:42:00* Test Item Value Reference Range Comments POC-GLUCOSE METER (BEAKER) (test gsqm=9776) 211 mg/dL 70-110 TESTED AT [address] [address] POCT-GLUCOSE [id number] 20:42:00* Test Item Value Reference Range Comments POC-GLUCOSE METER (BEAKER) (test wnwk=2674) 293 mg/dL 70-110 TESTED AT [address] [address] POCT-GLUCOSE [id number] 17:10:00* Test Item Value Reference Range Comments POC-GLUCOSE METER (BEAKER) (test pxhy=0719) 264 mg/dL 70-110 TESTED AT [address] [address] POCT-GLUCOSE [id number] 13:15:00* Test Item Value Reference Range Comments POC-GLUCOSE METER (BEAKER) (test xpuh=8616) 251 mg/dL 70-110 TESTED AT [address] [address] POCT-GLUCOSE [id number] 08:51:00* Test Item Value Reference Range Comments POC-GLUCOSE METER (BEAKER) (test nlwg=7212) 240 mg/dL 70-110 TESTED AT [address] [address] BASIC METABOLIC [id number] 05:21:00* Test Item Value Reference Range Comments SODIUM (BEAKER) (test arwv=734) 137 meq/L 136-145 POTASSIUM (BEAKER) (test wyky=950) 4.9 meq/L 3.5-5.1 Specimen slightly hemolyzed CHLORIDE (BEAKER) (test uvbm=503) 100 meq/L 98-107 CO2 (BEAKER) (test ruhz=753) 24 meq/L 22-29 BLOOD UREA NITROGEN (BEAKER) (test ruls=100) 56 mg/dL 7-21 CREATININE (BEAKER) (test nabi=328) 8.43 mg/dL 0.57-1.25 Specimen slightly hemolyzed GLUCOSE RANDOM (BEAKER) (test nkqt=662) 246 mg/dL 70-105 CALCIUM (BEAKER) (test gfjz=921) 7.6 mg/dL 8.4-10.2 EGFR (BEAKER) (test vhwe=2440) 6 mL/min/1.73 sq m ESTIMATED GFR IS NOT ACCURATE CREATININE CLEARANCE IN PREDICTING GLOMERULAR FILTRATION RATE. ESTIMATED GFR IS NOT APPLICABLE FOR DIALYSIS PATIENTS. CBC W/PLT COUNT & AUTO [id number] 05:16:00* Test Item Value Reference Range Comments WHITE BLOOD CELL COUNT (BEAKER) (test csoc=776) 9.3 K/ L 3.5-10.5 RED BLOOD CELL COUNT (BEAKER) (test kvvo=778) 2.69 M/ L 4.63-6.08 HEMOGLOBIN (BEAKER) (test wlkl=424) 8.6 GM/DL 13.7-17.5 HEMATOCRIT (BEAKER) (test xypy=883) 26.6 % 40.1-51.0 MEAN CORPUSCULAR VOLUME (BEAKER) (test xqtd=607) 98.9 fL 79.0-92.2 MEAN CORPUSCULAR HEMOGLOBIN (BEAKER) (test awla=991) 32.0 pg 25.7-32.2 MEAN CORPUSCULAR HEMOGLOBIN CONC (BEAKER) (test wqbu=429) 32.3 GM/DL 32.3-36.5 RED CELL DISTRIBUTION WIDTH (BEAKER) (test rndw=956) 14.2 % 11.6-14.4 PLATELET COUNT (BEAKER) (test wvsa=436) 227 K/CU MM 150-450 MEAN PLATELET VOLUME (BEAKER) (test ildi=243) 10.4 fL 9.4-12.4 NUCLEATED RED BLOOD CELLS (BEAKER) (test qsxw=449) 0 /100 WBC 0-0 NEUTROPHILS RELATIVE PERCENT (BEAKER) (test zlar=594) 74 % LYMPHOCYTES RELATIVE PERCENT (BEAKER) (test wdus=208) 16 % MONOCYTES RELATIVE PERCENT (BEAKER) (test ruuv=915) 9 % EOSINOPHILS RELATIVE PERCENT (BEAKER) (test bjhq=642) 0 % BASOPHILS RELATIVE PERCENT (BEAKER) (test vlbx=402) 0 % NEUTROPHILS ABSOLUTE COUNT (BEAKER) (test dbwn=584) 6.87 K/ L 1.78-5.38 LYMPHOCYTES ABSOLUTE COUNT (BEAKER) (test ummk=973) 1.43 K/ L 1.32-3.57 MONOCYTES ABSOLUTE COUNT (BEAKER) (test hxul=053) 0.82 K/ L 0.30-0.82 EOSINOPHILS ABSOLUTE COUNT (BEAKER) (test qvvd=836) 0.02 K/ L 0.04-0.54 BASOPHILS ABSOLUTE COUNT (BEAKER) (test wswx=132) 0.03 K/ L 0.01-0.08 IMMATURE GRANULOCYTES-RELATIVE PERCENT (BEAKER) (test nads=3083) 1 % 0-1 POCT-GLUCOSE [id number] 21:31:00* Test Item Value Reference Range Comments POC-GLUCOSE METER (BEAKER) (test cvqo=7893) 264 mg/dL 70-110 TESTED AT [address] [address] [place], [place] IN OR/30 MINUTE [id number] 16:31:00Reason for exam:->LEFT IM RODDINGFINAL REPORT Fluoroscopic exam Clinical History: LEFT IM RODDING Impression: Fluoroscopic assistance is provided for a procedure. The radiologist is not present during the procedure. Images are presented for interpretation at the completion of the procedure. Please refer to the procedure report for more details. Number of images obtained: 4 Fluoroscopy time: 116.8 seconds Signed: Heydi Ma Verified Date/Time: 01/13/2017 16:31:24 Reading Location: [address] Consult Reading Room -GLUCOSE [id number] 16:12:00* Test Item Value Reference Range Comments POC-GLUCOSE METER (BEAKER) (test tfnh=6010) 205 mg/dL 70-110 TESTED AT [place] [id number] [facility] [address] POCT-GLUCOSE [id number] 11:21:00* Test Item Value Reference Range Comments POC-GLUCOSE METER (BEAKER) (test svjr=5813) 151 mg/dL 70-110 TESTED AT [address] [address] BLOOD [place], [id number] 10:57:00* Test Item Value Reference Range Comments PH ARTERIAL (BEAKER) (test ndsi=314) 7.42 7.35-7.45 PCO2 ARTERIAL (BEAKER) (test wyyb=105) 45 mm Hg 35-45 PO2 ARTERIAL (BEAKER) (test iolh=498) 103 mm Hg 80-90 O2 SATURATION ARTERIAL (BEAKER) (test jvmi=057) 97.8 % 96.0-97.0 HCO3 ARTERIAL (BEAKER) (test dlvg=183) 28 mmol/L 21-29 BASE EXCESS ARTERIAL (BEAKER) (test pdid=005) 3.3 mmol/L -2.0-3.0 PATIENT TEMPERATURE (BEAKER) (test afdt=4382) 37.0 FIO2 (BEAKER) (test midv=8982) 21 HEPATITIS B SURFACE [id number] 08:31:00* Test Item Value Reference Range Comments HEPATITIS B SURFACE ANTIGEN (2) (BEAKER) (test kvzg=6789) Nonreactive Nonreactive For chronic HD patients, draw HBsAg with each admission then every 30 days.POCT- GLUCOSE [id number] 05:54:00* Test Item Value Reference Range Comments POC-GLUCOSE METER (BEAKER) (test zsnh=1711) 222 mg/dL 70-110 TESTED AT [address] [address] BASIC METABOLIC [id number] 05:06:00* Test Item Value Reference Range Comments SODIUM (BEAKER) (test ebre=414) 139 meq/L 136-145 POTASSIUM (BEAKER) (test tclw=493) 4.6 meq/L 3.5-5.1 CHLORIDE (BEAKER) (test xtuu=336) 99 meq/L 98-107 CO2 (BEAKER) (test zozb=777) 27 meq/L 22-29 BLOOD UREA NITROGEN (BEAKER) (test kbyy=999) 76 mg/dL 7-21 CREATININE (BEAKER) (test dvtq=992) 9.94 mg/dL 0.57-1.25 GLUCOSE RANDOM (BEAKER) (test uwwe=168) 208 mg/dL 70-105 CALCIUM (BEAKER) (test amwk=726) 8.0 mg/dL 8.4-10.2 EGFR (BEAKER) (test hfkg=1126) 5 mL/min/1.73 sq m ESTIMATED GFR IS NOT ACCURATE CREATININE CLEARANCE IN PREDICTING GLOMERULAR FILTRATION RATE. ESTIMATED GFR IS NOT APPLICABLE FOR DIALYSIS PATIENTS. [id number] 04:35:00* Test Item Value Reference Range Comments PROTIME (BEAKER) (test kkrm=027) 15.0 seconds 11.7-14.7 INR (BEAKER) (test ftky=580) 1.2 <=5.9 PARTIAL THROMBOPLASTIN TIME (BEAKER) (test epax=389) 28.1 seconds 22.5-36.0 RECOMMENDED COUMADIN/WARFARIN INR THERAPY RANGESSTANDARD DOSE: 2.0 - 3.0 Inclu bhupendra: PROPHYLAXIS for venous thrombosis, systemic embolization; TREATMENT for monet ous thrombosis and/or pulmonary embolus.HIGH RISK: Target INR is 2.5-3.5 for pat ients with mechanical heart valves.CBC W/PLT COUNT & AUTO [id number] 04:30:00* Test Item Value Reference Range Comments WHITE BLOOD CELL COUNT (BEAKER) (test njhd=753) 7.9 K/ L 3.5-10.5 RED BLOOD CELL COUNT (BEAKER) (test jvrz=870) 2.82 M/ L 4.63-6.08 HEMOGLOBIN (BEAKER) (test zwaw=712) 9.1 GM/DL 13.7-17.5 HEMATOCRIT (BEAKER) (test bpvj=754) 28.1 % 40.1-51.0 MEAN CORPUSCULAR VOLUME (BEAKER) (test dbsg=794) 99.6 fL 79.0-92.2 MEAN CORPUSCULAR HEMOGLOBIN (BEAKER) (test fevc=032) 32.3 pg 25.7-32.2 MEAN CORPUSCULAR HEMOGLOBIN CONC (BEAKER) (test yygc=321) 32.4 GM/DL 32.3-36.5 RED CELL DISTRIBUTION WIDTH (BEAKER) (test dtcy=798) 14.4 % 11.6-14.4 PLATELET COUNT (BEAKER) (test fbmg=252) 245 K/CU MM 150-450 MEAN PLATELET VOLUME (BEAKER) (test dgcx=227) 9.9 fL 9.4-12.4 NUCLEATED RED BLOOD CELLS (BEAKER) (test tbet=316) 0 /100 WBC 0-0 NEUTROPHILS RELATIVE PERCENT (BEAKER) (test lxks=433) 70 % LYMPHOCYTES RELATIVE PERCENT (BEAKER) (test gswd=750) 21 % MONOCYTES RELATIVE PERCENT (BEAKER) (test uxln=530) 8 % EOSINOPHILS RELATIVE PERCENT (BEAKER) (test flwo=847) 1 % BASOPHILS RELATIVE PERCENT (BEAKER) (test quoq=583) 0 % NEUTROPHILS ABSOLUTE COUNT (BEAKER) (test pkjx=178) 5.50 K/ L 1.78-5.38 LYMPHOCYTES ABSOLUTE COUNT (BEAKER) (test upyp=434) 1.66 K/ L 1.32-3.57 MONOCYTES ABSOLUTE COUNT (BEAKER) (test ozsl=575) 0.59 K/ L 0.30-0.82 EOSINOPHILS ABSOLUTE COUNT (BEAKER) (test lbsk=274) 0.05 K/ L 0.04-0.54 BASOPHILS ABSOLUTE COUNT (BEAKER) (test njws=430) 0.03 K/ L 0.01-0.08 IMMATURE GRANULOCYTES-RELATIVE PERCENT (BEAKER) (test dwgu=7126) 1 % 0-1 POCT-GLUCOSE [id number] 23:36:00* Test Item Value Reference Range Comments POC-GLUCOSE METER (BEAKER) (test nerg=3265) 408 mg/dL 70-110 Notified ALTAGRACIA SWEENEY/TESTED AT [address] [address] [address], EXTREMITY, LOWER WITHOUT CONTRAST, [id number] 22:41:00FINAL REPORT CT, EXTREMITY, LOWER WITHOUT CONTRAST, LEFT INDICATION: "Fracture, hip" COMPARISON: Left hip x-ray from earlier tonight TECHNIQUE: Noncontrast axial CT images of the left hip were obtained with sagittal and coronal reformats. DOSE REDUCTION: Dose modulation, iterative reconstruction, and/or weight-based adjustment of the mA/kV was utilized to reduce the radiation dose to as low as reasonably achievable. FINDINGS: Redemonstration of a commin uted intertrochanteric left hip fracture with mild varus and moderate to severe anterior angulation. There is proximal migration of the femur with 1.2 cm of imp action of the proximal femoral shaft into the trochanters. The distal fracture f ragment is displaced anteriorly by half a shaft width.The irregularity seen aaron g the femoral head/neck junction seen on the prior radiograph represents margina l osteophyte formation from severe osteoarthritis. No fracture of the femoral he ad or proximal neck is present.The left hemipelvis is intact.There is hematoma s urrounding the intertrochanteric fracture. IMPRESSION:Comminuted, displaced, and angulated intertrochanteric left hip fracture.Irregularity along the femoral he ad/neck junction seen on prior x-ray represents sequelae of osteoarthritis. Si gned: Bhumi See MDReport Verified Date/Time: 01/12/2017 22:41:40 Reading Location: [facility] C013X Ortho Consult Reading Room -GLUCOSE [id number] 17:40:00 * Test Item Value Reference Range Comments POC-GLUCOSE METER (BEAKER) (test oacm=3168) 218 mg/dL 70-110 TESTED AT [facility] [address] [facility] [address] POTASSIUM-STAT [id number] 12:41:00* Test Item Value Reference Range Comments POTASSIUM (BEAKER) (test nwok=812) 4.8 meq/L 3.6-5.5 COMPREHENSIVE METABOLIC [id number] 11:40:00* Test Item Value Reference Range Comments TOTAL PROTEIN (BEAKER) (test bvxf=892) 7.9 gm/dL 6.0-8.3 Specimen slightly hemolyzed ALBUMIN (BEAKER) (test nszb=9098) 3.8 g/dL 3.5-5.0 Specimen slightly hemolyzed ALKALINE PHOSPHATASE (BEAKER) (test lryi=616) 131 U/L 40-150 BILIRUBIN TOTAL (BEAKER) (test vabk=246) 0.7 mg/dL 0.2-1.2 Specimen slightly hemolyzed SODIUM (BEAKER) (test dowm=195) 138 meq/L 136-145 POTASSIUM (BEAKER) (test ggyn=735) 5.6 meq/L 3.5-5.1 Specimen slightly hemolyzed CHLORIDE (BEAKER) (test hlri=179) 103 meq/L 98-107 CO2 (BEAKER) (test smza=722) 20 meq/L 22-29 BLOOD UREA NITROGEN (BEAKER) (test ezpa=100) 67 mg/dL 7-21 CREATININE (BEAKER) (test ukoj=374) 8.93 mg/dL 0.57-1.25 Specimen slightly hemolyzed GLUCOSE RANDOM (BEAKER) (test hucr=992) 180 mg/dL 70-105 CALCIUM (BEAKER) (test bmzp=584) 8.3 mg/dL 8.4-10.2 AST (SGOT) (VASYL) (test lyeu=283) 29 U/L 5-34 Specimen slightly hemolyzed ALT (SGPT) (VASYL) (test nwlb=014) 21 U/L 6-55 Specimen slightly hemolyzed EGFR (VASYL) (test kfsp=8696) 6 mL/min/1.73 sq m ESTIMATED GFR IS NOT ACCURATE CREATININE CLEARANCE IN PREDICTING GLOMERULAR FILTRATION RATE. ESTIMATED GFR IS NOT APPLICABLE FOR DIALYSIS PATIENTS. RAD, HIP, 2 VIEWS, [id number] 11:11:00Reason for exam:->HIP PAINReason for exam:->FALLFINAL REPORT Radiograph of the left hip and left femur Reason for exam: HIP PAINFALL Comparison: No priors Discussion: There is a intertrochanteric, comminuted fracture of the left femur, with slight varus angulation. The femoral shaft is medially displaced by approximately 1 cm. Suspect an additional nondisplaced fracture in the basicervical region. Bony mineralization is decreased. Advanced degenerative changes are seen at the left knee. Visualized soft tissues are unremarkable. Impressions: Comminuted left intertrochanteric femoral fracture. Additionally, question a nondisplaced femoral neck fracture. Advanced left knee osteoarthritis. Signed: Heydi Ma Verified Date/Time: 01/12/2017 11:11:33 Reading Location: [facility] Radiology Reading Room , FEMUR, MIN. 2 VIEWS, [id number] 11:11:00Reason for exam:->HIP PAINReason for exam:->FALLFINAL REPORT Radiograph of the left hip and left femur Reason for exam: HIP PAINFALL Comparison: No priors Discussion: There is a intertrochanteric, comminuted fracture of the left femur, with slight varus angulation. The femoral shaft is medially displaced by approximately 1 cm. Suspect an additional nondisplaced fracture in the basicervical region. Bony mineralization is decreased. Advanced degenerative changes are seen at the left knee. Visualized soft tissues are unremarkable. Impressions: Comminuted left intertrochanteric femoral fracture. Additionally, question a nondisplaced femoral neck fracture. Advanced left knee osteoarthritis. Signed: Heydi Ma MDReport Verified Date/Time: 01/12/2017 11:11:33 Reading Location: [facility] Radiology Reading Room /APTT 2017-01-12 10:23:00* Test Item Value Reference Range Comments PROTIME (BEAKER) (test sfml=145) 15.0 seconds 11.7-14.7 INR (BEAKER) (test zvtq=043) 1.2 <=5.9 PARTIAL THROMBOPLASTIN TIME (BEAKER) (test fagt=928) 24.0 seconds 22.5-36.0 RECOMMENDED COUMADIN/WARFARIN INR THERAPY RANGESSTANDARD DOSE: 2.0 - 3.0 Inclu bhupendra: PROPHYLAXIS for venous thrombosis, systemic embolization; TREATMENT for monet ous thrombosis and/or pulmonary embolus.HIGH RISK: Target INR is 2.5-3.5 for pat ients with mechanical heart valves.CBC W/PLT COUNT & AUTO [id number] 10:16:00* Test Item Value Reference Range Comments WHITE BLOOD CELL COUNT (BEAKER) (test lnew=745) 8.0 K/ L 3.5-10.5 RED BLOOD CELL COUNT (BEAKER) (test grvk=411) 3.37 M/ L 4.63-6.08 HEMOGLOBIN (BEAKER) (test scww=006) 10.9 GM/DL 13.7-17.5 HEMATOCRIT (BEAKER) (test wwps=987) 34.0 % 40.1-51.0 MEAN CORPUSCULAR VOLUME (BEAKER) (test dbcr=347) 100.9 fL 79.0-92.2 MEAN CORPUSCULAR HEMOGLOBIN (BEAKER) (test anqa=214) 32.3 pg 25.7-32.2 MEAN CORPUSCULAR HEMOGLOBIN CONC (BEAKER) (test vkic=940) 32.1 GM/DL 32.3-36.5 RED CELL DISTRIBUTION WIDTH (BEAKER) (test iubd=956) 14.6 % 11.6-14.4 PLATELET COUNT (BEAKER) (test xbwc=596) 269 K/CU MM 150-450 MEAN PLATELET VOLUME (BEAKER) (test fics=604) 9.9 fL 9.4-12.4 NUCLEATED RED BLOOD CELLS (BEAKER) (test xtie=437) 0 /100 WBC 0-0 NEUTROPHILS RELATIVE PERCENT (BEAKER) (test eysf=520) 70 % LYMPHOCYTES RELATIVE PERCENT (BEAKER) (test rgju=741) 22 % MONOCYTES RELATIVE PERCENT (BEAKER) (test yojf=792) 5 % EOSINOPHILS RELATIVE PERCENT (BEAKER) (test vzox=517) 1 % BASOPHILS RELATIVE PERCENT (BEAKER) (test hzei=618) 1 % NEUTROPHILS ABSOLUTE COUNT (BEAKER) (test mjcy=738) 5.63 K/ L 1.78-5.38 LYMPHOCYTES ABSOLUTE COUNT (BEAKER) (test ebsf=024) 1.79 K/ L 1.32-3.57 MONOCYTES ABSOLUTE COUNT (BEAKER) (test oeub=112) 0.39 K/ L 0.30-0.82 EOSINOPHILS ABSOLUTE COUNT (BEAKER) (test bkdr=898) 0.09 K/ L 0.04-0.54 BASOPHILS ABSOLUTE COUNT (BEAKER) (test nska=306) 0.05 K/ L 0.01-0.08 IMMATURE GRANULOCYTES-RELATIVE PERCENT (BEAKER) (test gmki=5906) 1 % 0-1
[2019-01-27 20:41] LABS: HEMATOCRIT 28.3 % (38.2-49.6); HEMOGLOBIN 9.6 g/dL (14.0-18.0); RED BLOOD COUNT 3.03 x10e6/uL (4.3-5.7)
[2019-01-27 20:42] LABS: BASOPHILS # (AUTO) 0.1 (0.0-0.1); BASOPHILS % 0.6 % (0.0-1.0); EOSINOPHILS # (AUTO) 0.1 (0.0-0.4); EOSINOPHILS % 0.6 % (0.0-6.0); LYMPHOCYTES % 12.7 % (18.0-39.1); MEAN CORPUSCULAR HEMOGLOBIN 31.7 pg (28-32); MEAN CORPUSCULAR HGB CONC 33.9 g/dL (31-35); MEAN CORPUSCULAR VOLUME 93.4 fL (81-99); MONOCYTES # (AUTO) 0.7 (0.2-0.8); MONOCYTES % 8.3 % (4.4-11.3); NEUTROPHILS # (AUTO) 6.3 (2.1-6.9); NEUTROPHILS % 76.5 % (38.7-80.0); PLATELET COUNT 373 x10e3/uL (140-360); RED CELL DISTRIBUTION WIDTH 14.4 % (11.7-14.4)
[2019-01-27 21:03] LABS: ANION GAP 16.3 mmol/L (8-16); CALCIUM 8.5 mg/dL (8.4-10.2); CREATININE, SERUM 5.44 mg/dL (0.72-1.25); MAGNESIUM 1.8 MG/DL (1.3-2.1); POTASSIUM 3.3 mmol/L (3.5-5.1)
[2019-01-27 21:04] LABS: ALBUMIN 3.4 g/dL (3.5-5.0); ALBUMIN/GLOBULIN RATIO 0.9 (0.8-2.0); CREATINE KINASE MB 4.6 ng/mL (0-5.0)
[2019-01-27 21:07] LABS: PARTIAL THROMBOPLASTIN TIME 32.3 seconds (23.8-35.5); PROTHROMBIN TIME 13.7 seconds (11.9-14.5)
--- NOTE | 2019-01-27 21:20 | Diagnostic Imaging Report ---
EXAMINATION: CHEST SINGLE (NOT PORTABLE) INDICATION: Vomiting, nausea, cough COMPARISON: None FINDINGS: AP view TUBES and LINES: None. LUNGS: Lungs are well inflated. Prominent pulmonary vasculature. Hazy opacity in the left lower lateral air-filled PLEURA: No pleural effusion or pneumothorax. HEART AND MEDIASTINUM: The cardiomediastinal silhouette is borderline enlarged. Surgical changes along the left mediastinum BONES AND SOFT TISSUES: There are degenerative changes in the thoracic spine. Soft tissues are unremarkable. Sternotomy wires. UPPER ABDOMEN: No free air under the diaphragm. IMPRESSION: Borderline cardiomegaly and pulmonary vascular congestion. Hazy opacity in the left lower lateral airfield could be scarring/atelectasis, although pneumonia is possible in the appropriate clinical setting. Signed by: Emir Blankenship DO on 01/27/2019 9:16 PM
[2019-01-28] VITALS (8 sets, daily range): BP systolic 164–183; BP diastolic 79–85
[2019-01-28] MEDS ORDERED: FAMOTIDINE20 MG PO (01:44)
[2019-01-28] MEDS ORDERED: AMLODIPINE BESYL5 MG PO (01:44)
[2019-01-28] MEDS ORDERED: RANOLAZINE ER500 MG PO (01:44)
[2019-01-28] MEDS ORDERED: CARBAMAZEPINE200 MG PO (01:44)
[2019-01-28] MEDS ORDERED: ATORVASTATIN CA40 MG PO (01:44)
[2019-01-28] MEDS ORDERED: BUPROPION XL150 MG PO (01:44)
[2019-01-28] MEDS ORDERED: CLOPIDOGREL75 MG PO (01:44)
[2019-01-28] MEDS ORDERED: FENOFIBRATE54 MG PO (01:44)
[2019-01-28] MEDS ORDERED: ESCITALOPRAM OX20 MG PO (01:44)
[2019-01-28] MEDS ORDERED: TAMSULOSIN PO (01:44)
[2019-01-28] MEDS ORDERED: ISOSORBIDE MONO30 MG PO (01:44)
[2019-01-28] MEDS ORDERED: FOLIC ACID PO (01:44)
[2019-01-28] MEDS ORDERED: METOPROLOL TART50 MG PO (01:44)
[2019-01-28] MEDS ORDERED: AMIODARONE HCL400 MG PO (01:44)
--- NOTE | 2019-01-28 01:48 | Diagnostic Imaging Report ---
EXAM: CT Abdomen and Pelvis WITH contrast INDICATION: Hyperbilirubinemia COMPARISON: None. TECHNIQUE: Abdomen and pelvis were scanned utilizing a multidetector helical scanner from the lung base to the pubic symphysis after administration of IV contrast. Coronal and sagittal reformations were obtained. Routine protocol was performed. Scan was performed when during portal venous phase. IV CONTRAST: 100 mL of Isovue 370 ORAL CONTRAST: Water COMPLICATIONS: None RADIATION DOSE: Total DLP: 848 mGy*cm Estimated effective dose: (DLP x 0.015 x size factor) mSv CTDIvol has been reviewed. It is below the limits set by the Radiation Protocol Committee (RPC). Dose modulation, iterative reconstruction, and/or weight based adjustment of the mA/kV was utilized to reduce the radiation dose to as low as reasonably achievable. FINDINGS: LINES and TUBES: None. LOWER THORAX: Coronary artery calcifications. HEPATOBILIARY: No focal hepatic lesions. No biliary ductal dilation. GALLBLADDER: Layering hyperdense sludge in gallbladder lumen. No wall thickening. SPLEEN: No splenomegaly. PANCREAS: No focal masses or ductal dilatation. ADRENALS: No adrenal nodules KIDNEYS/URETERS: Kidneys enhance symmetrically. No stones. Tiny hypodensities in the kidneys are too small to characterize, likely benign. Bilateral renal atrophy. Mild right renal pelvocaliectasis and proximal ureterectasis which tapers at the proximal ureter, without an obstructing calculus/lesion GI TRACT: No abnormal distention, wall thickening, or evidence of bowel obstruction. Appendix is not clearly identified. There is however no fat stranding or adenopathy in the right lower quadrant to suggest appendicitis. PELVIC ORGANS/BLADDER: Mild prostatomegaly. LYMPH NODES: No lymphadenopathy. VESSELS: There is moderate atherosclerotic disease in the aorta and major arterial branches. PERITONEUM / RETROPERITONEUM: No free air or fluid. BONES: Healed right lower rib fractures. Intact partially visualized left proximal femoral fixation hardware in healed proximal left femoral fracture deformity.. Degenerative changes in the spine, hips, and pelvis. SOFT TISSUES: Unremarkable. IMPRESSION: 1. Sludge in the gallbladder lumen without evidence of cholecystitis. 2. Mild prostatomegaly. 3. Mild right renal pelvocaliectasis and proximal ureterectasis which tapers at the proximal ureter, without an obstructing calculus/lesion. A proximal right ureteral stenosis/stricture is possible. Signed by: Emir Blankenship DO on 01/28/2019 1:45 AM
--- NOTE | 2019-01-28 01:57 | NUR ---
ER GAVE VERBAL APPROVAL FOR PT TO TAKE HOME MEDICATIONS. FAMOTIDINE 20MG X1, METOPROLOL 50MG X1, AMLIODIPINE 50MG X1, FINOFIBRATE 5MG X1, ATORVASTATIN 40MG X1, CARBAMAZEPINE 200MG X1, ESCITALOPRAM 20MG X1, RANOLAZINE ER 500MG X1; BP 166/94, HR 68. NAD NOTED AT THIS TIME. PT TOLERATED WELL. WILL CONTINUE TO MONITOR.
[2019-01-28] MEDS ORDERED: ONDANSETRON HCL INJ 2MG/ML 2ML 2 MG/ML VIAL IV PRN (02:00)
[2019-01-28] MEDS ORDERED: MORPHINE SULFATE INJ 4 MG/ML INJ 1ML IV PRN (03:00)
[2019-01-28] MEDS ORDERED: SODIUM CHLORIDE 0.9% 50ML 50 ML ONE (03:07)
[2019-01-28] MEDS ORDERED: IOPAMIDOL 370 MG/ML 200 ML INFUS..BTL INJ ONE (03:07)
--- NOTE | 2019-01-28 05:00 | NUR ---
patient received to room 200 via stretcher from the emergency room. bp 180/83 hr 64 temp 96.0 rr 16 on room air. no c/o pain noted at this time. admit assessment/history complete. noted at the bedside. and patient instructed to call for assistance when needed.
--- NOTE | 2019-01-28 05:56 | NUR ---
Call placed to Dr. zavala re: elevated bp. awaiting return call.
--- NOTE | 2019-01-28 07:00 | NUR ---
BEDSIDE SHIFT REPORT RECEIVED FROM DEZ FRIAS. PT DENIES NEEDS AT THIS TIME.
[2019-01-28] MEDS ORDERED: DEXTROSE 50% SYRINGE 50 ML IV PRN (10:30)
[2019-01-28] MEDS ORDERED: ACETAMINOPHEN 325 MG TAB PO PRN (10:30)
[2019-01-28 10:52] LABS: BASOPHILS # (AUTO) 0.1 (0.0-0.1); BASOPHILS % 0.6 % (0.0-1.0); EOSINOPHILS # (AUTO) 0.1 (0.0-0.4); EOSINOPHILS % 1.4 % (0.0-6.0); HEMOGLOBIN 8.7 g/dL (14.0-18.0); LYMPHOCYTES # (AUTO) 1.1 (1.0-3.2); LYMPHOCYTES % 11.1 % (18.0-39.1); MEAN CORPUSCULAR HEMOGLOBIN 32.2 pg (28-32); MEAN CORPUSCULAR HGB CONC 34.8 g/dL (31-35); MEAN CORPUSCULAR VOLUME 92.6 fL (81-99); MONOCYTES # (AUTO) 0.8 (0.2-0.8); MONOCYTES % 8.6 % (4.4-11.3); NEUTROPHILS # (AUTO) 7.4 (2.1-6.9); NEUTROPHILS % 77.4 % (38.7-80.0); PLATELET COUNT 319 x10e3/uL (140-360); RED CELL DISTRIBUTION WIDTH 14.3 % (11.7-14.4)
[2019-01-28 11:01] LABS: ALBUMIN 3.1 g/dL (3.5-5.0); ALBUMIN/GLOBULIN RATIO 0.9 (0.8-2.0); ANION GAP 14.3 mmol/L (8-16); CALCIUM 8.2 mg/dL (8.4-10.2); CREATININE, SERUM 6.15 mg/dL (0.72-1.25); POTASSIUM 3.3 mmol/L (3.5-5.1)
[2019-01-28] MEDS: INSULIN REGULAR, HUMAN 100 UNIT/1 ML 3ML VIAL SQ SCH ×3 (11:30→21:00)
[2019-01-28] MEDS ORDERED: SODIUM CHLORIDE 0.9% 500ML 500 ML IV ONE (11:45)
[2019-01-28] MEDS ORDERED: POTASSIUM CHLORIDE 20 MEQ TAB CR PO NR (12:30)
[2019-01-28] MEDS ORDERED: FUROSEMIDE INJ 10 MG/ML 4 ML VIAL IV NR (12:30)
[2019-01-28] MEDS: AMLODIPINE BESYLATE 5 MG TAB PO SCH ×2 (13:52→21:45)
[2019-01-28] MEDS: RANOLAZINE 500 MG TABSR PO SCH ×2 (13:52→21:45)
[2019-01-28] MEDS: CLOPIDOGREL BISULFATE 75 MG TAB PO SCH (13:52)
[2019-01-28] MEDS: ESCITALOPRAM OXALATE 10 MG TAB PO SCH (13:52)
[2019-01-28] MEDS: FOLIC ACID 1 MG TAB PO SCH (13:52)
[2019-01-28] MEDS: ISOSORBIDE MONONITRATE 30 MG TAB CR PO SCH (13:52)
[2019-01-28] MEDS: AMIODARONE HCL 200 MG TAB PO SCH (13:52)
[2019-01-28] MEDS: CARBAMAZEPINE 200 MG TAB PO SCH ×2 (13:53→21:45)
[2019-01-28] MEDS: BUPROPION HCL 150 MG TABCR PO SCH (13:53)
[2019-01-28] MEDS ORDERED: FAMOTIDINE 20 MG TAB PO SCH (16:30)
[2019-01-28] MEDS: METOPROLOL TARTRATE 50 MG TAB PO SCH (17:22)
--- NOTE | 2019-01-28 18:30 | Diagnostic Imaging Report ---
Hepatobiliary Scan with Gallbladder Ejection Fraction Clinical information: R10.9 Abdominal pain Technique: Following intravenous administration of 6.6 millicuries of Tc-99m mebrofenin, dynamic images of the abdomen in the anterior projection were obtained through 30 minutes. Sincalide (CCK analog) 1.4 micrograms was administered intravenously over 30 minutes with additional imaging for determination of gallbladder ejection fraction. Discussion: Perfusion of the liver is normal. Extraction of tracer by the liver parenchyma is normal. Tracer appears promptly within the biliary tract. The gallbladder begins to fill by 8 minutes post injection of tracer and fills adequately. Tracer is seen in the small bowel by 18 minutes. The gallbladder ejection fraction with sincalide is 26% (normal greater than 40%). Impression: 1. Filling of the gallbladder excludes acute cystic duct obstruction/acute cholecystitis. 2. The decreased gallbladder ejection fraction of 26% supports the clinical diagnosis of chronic cholecystitis/gallbladder dyskinesia. Signed by: Dr. Nano De La Cruz M.D. on 01/28/2019 6:27 PM
--- NOTE | 2019-01-28 18:31 | History and Physical ---
PRIMARY CARE PHYSICIAN: Dr. Laguerre at [facility] CHIEF COMPLAINT: Generalized weakness, nausea, vomiting, and cough with back pain. HISTORY OF PRESENT ILLNESS: This is a 73-year-old male with past medical history of hypertension, atrial fibrillation, diabetes type 2, ESRD on dialysis Thursday, , and Saturdays, CAD, seizure disorder, and BPH presented to the ER with complaints of generalized weakness, nausea, vomiting, and cough x3 days. According to family at bedside, they had to call their PCP to notify him of the patient's status and complaints. They were instructed to come to the ER for further evaluation. The patient was noted to be lethargic. He denies any chest pain, shortness of breath, palpitations, hematemesis or melena. He however has been having nausea and vomiting for the past three days. Only had one meal yesterday soup, but otherwise remains in bed with slight altered mental status and back pain. PAST MEDICAL HISTORY: 1. Hypertension. 2. Atrial fibrillation. 3. Diabetes type 2. 4. ESRD on dialysis TTS. 5. CAD. 6. Seizure disorder. 7. BPH. PAST SURGICAL HISTORY: 1. Appendectomy. 2. CABG x5. 3. PCI. 4. Hip replacement. FAMILY MEDICAL HISTORY: Mother of old age and father of heart disease. SOCIAL HISTORY: He denies any tobacco, alcohol, or drug use. ALLERGIES: NO KNOWN DRUG ALLERGIES. REVIEW OF SYSTEMS: GENERAL: Fatigue, generalized weakness. HEENT: No head trauma. LUNGS: Reports cough, productive, white. HEART: No chest pain or palpitations. GI: Abdominal pain, nausea and vomiting. NEURO: Forgetfulness and dizziness, generalized weakness. MUSCULOSKELETAL: Moves all extremities. SKIN: No rash. PHYSICAL EXAMINATION: VITAL SIGNS: Temperature is 96.6, pulse is 60, respirations 18, blood pressure is 182/81, pulse ox is 97% on room air. GENERAL: Fatigue and generalized weakness. HEENT: Normocephalic, atraumatic. NECK: Supple and midline. LUNGS: With decreased breath sounds. CARDIOVASCULAR: Regular rate and rhythm. GI: Soft and nontender. NEUROLOGIC: Alert and awake, oriented x2 to 3. He is forgetful. MUSCULOSKELETAL: Moves all extremities, but very weak. SKIN: Dry and intact. LABORATORY DATA: WBC is 9.62, hemoglobin 8.7, hematocrit 25, platelet 319. Chemistry; sodium 132, potassium 3.3, creatinine 5.44. Lactic acid pending. Estimated GFR is 10, creatinine is 5.44, BUN is 30, magnesium is 1.8, troponin is 0.089. BNP is 1002. PT 13.5, INR 1.0, APTT 32.3. IMAGING: Chest x-ray showed borderline cardiomegaly and pulmonary vascular congestion with hazy opacities in the lower lateral air field, could be scarring or atelectasis. CT abdomen and pelvis showed sludge in the gallbladder lumen without evidence of cholecystitis. Mild prostate enlargement and mild right renal pelvocaliectasis and proximal which tapers at the proximal urethra without obstructing calculus or lesion. IMPRESSION AND PLAN: 1. Generalized weakness, likely due to dehydration caused by nausea and vomiting. The patient was given light hydration of IV fluids in the ER. We will give another dose of NS. Zofran for nausea and vomiting as needed. We will consult GI for further eval. 2. Elevated bilirubin. We will get a HIDA scan as CT abdomen noted with sludge, gallstones, but no acute cholecystitis. GI has been consulted. 3. Hyponatremia and hypokalemia. We will replace. 4. History of congestive heart failure, unknown type. BNP is 1002. We will obtain echo and resume home medication. We will give Lasix x1. 5. Hypertension. We will resume home Norvasc and metoprolol. 6. History of atrial fibrillation, currently sinus rhythm. We will continue metoprolol, amiodarone. He is not on anticoagulation due to anemia. 7. Diabetes type 2. We will continue with Accu-Chek before meals and at bedtime with sliding scale insulin coverage. 8. End-stage renal disease. We will consult Nephrology for dialysis on TTS. 9. History of coronary artery disease post coronary artery bypass grafting. We will resume home medication. Denies any chest pain. 10. History of seizure disorder. We will continue home medication. 11. History of benign prostatic hyperplasia. We will resume Flomax. 12. Anemia of chronic disease, aware. We will continue to monitor. 13. Deep vein thrombosis prophylaxis. We will continue SCDs. No chemical anticoagulation due to anemia. Dictated by Leonora Shepherd, ANP MD KWABENA Roberson /[id number]
--- NOTE | 2019-01-28 19:15 | NUR ---
Patient received lying in bed. AAO x 2. at bedside. Patient had no complaints of pain. No signs of respiratory distress. Fall precautions implemented. Patient/ instructed to call for assistance when needed. Call light within reach.
--- NOTE | 2019-01-28 20:16 | Consultation ---
DATE OF CONSULTATION: 01/28/2019 HISTORY OF PRESENT ILLNESS: Mr. Andrea Dee is known to our Nephrology Service. He is a 73-year-old gentleman, underlying history of diabetes, hypertension, end-stage renal disease, left arm AV fistula, underlying diabetic neuropathy, retinopathy, coronary artery disease, history of congestive heart failure, presented with nausea, vomiting, and feeling weak. He normally remains constipated. The family has changed his diet and removed all meats. Right now just giving him liquids and fish, I am not sure on whose advice, but nevertheless the patient lying supine, in no apparent distress. He missed his dialysis Thursday, but was dialyzed Thursday which is yesterday. He is otherwise lying supine, in no apparent distress. Denies shortness of breath, nausea, or vomiting. ALLERGIES: NO APPARENT DRUG ALLERGIES. CURRENT MEDICATIONS: Please see MAR. SOCIAL HISTORY: The patient does not smoke or drink. FAMILY HISTORY: Significant for diabetes. PHYSICAL EXAMINATION: GENERAL: Awake, alert, and oriented x3. No apparent distress. VITAL SIGNS: Blood pressure 170/79, pulse rate of 61, afebrile, respiratory rate 14, and oxygen saturation 97% on room air. HEAD AND NECK: Cornea clear. Oral mucosa moist. Neck veins flat. LUNGS: Relatively clear. HEART: S1, S2 audible. ABDOMEN: Otherwise soft, nontender. EXTREMITIES: Lower extremity, no edema. WORKUP INCLUDED: CT scan shows sludge in the gallbladder lumen without evidence of cholecystitis. Mild prostatomegaly. Mild right renal pelvicaliectasis. No obstructing calculus noted. A proximal right ureteral stenosis and stricture as possible. IMPRESSION AND PLAN: Nausea, vomiting, nonspecific CT findings. Volume status appears stable. Electrolytes noted, mildly hypokalemic, this morning was replaced; sodium was 128, potassium 3.3, bicarb 28, creatinine 6.15. White count 9.62, hemoglobin 8.7. His liver function enzymes; total bilirubin 0.4, AST 21, ALT 15, alkaline phosphatase 106. Medications reviewed. Discussed with family. Scheduled for dialysis in the morning. Volume status stable. No acute indications at the moment. Workup per primary care physician, Dr. Margarito Serrano has been appropriately consulted. MD DENA Acevedo/LYNN /[id number]
--- NOTE | 2019-01-28 20:20 | NUR ---
Dr. Karl Naylor notified of "Routine Consult" for patient. Reason: Chronic Cholecystitis vs Dyskinesia.
--- NOTE | 2019-01-28 21:01 | Diagnostic Imaging Report ---
EXAM: THORACIC SPINE 2VW DATE: 01/28/2019 11:24 AM INDICATION: ^pain, fall ^[id number] ^2025 COMPARISON: None FINDINGS: 5 views of the thoracic spine shows the bones demineralized. Shows 12 rib bearing thoracic vertebral bodies, likely with rudimentary ribs at T12. The thoracic vertebral body heights are maintained with mild anterior wedging at T12 that may be accentuated by projection. There are extensive bridging osteophytes. More prominent osteophytes are seen at T11-12 and T12-L1. Incidentally noted are sternotomy sutures, surgical clips in the mediastinum and vascular calcification. IMPRESSION: Somewhat suboptimal visualization of the bony structures due to demineralization and overlying monitor leads. No acute bony abnormality is seen. Mild anterior wedging at T12 likely either accentuated by projection or chronic based on prominent osteophytes. Diffuse degenerative changes are present. Signed by: Dr. Reg Kamara M.D. on 01/28/2019 8:57 PM
[2019-01-28] MEDS: ATORVASTATIN 40 MG TAB PO SCH (21:45)
[2019-01-28] MEDS: TAMSULOSIN HCL 0.4 MG CAP PO SCH (21:45)
--- NOTE | 2019-01-28 21:55 | NUR ---
Patient/ informed of upcoming Hemodialysis. Patient voluntarily signed "Disclosure and Consent ' form.
--- NOTE | 2019-01-28 22:35 | NUR ---
Patient removed IV from right forearm. New IV inserted in right FA 22G. Patient tolerated well.
[2019-01-29] VITALS (7 sets, daily range): BP systolic 142–180; BP diastolic 64–81
[2019-01-29] MEDS ORDERED: PANTOPRAZOLE 40 MG 10ML VIAL IV STA (00:39)
--- NOTE | 2019-01-29 02:35 | NUR ---
Patient attempted to get out of bed twice. Patient re-oriented to surroundings and re-positioned. Will continue to monitor.
[2019-01-29 05:10] LABS: BASOPHILS % 0.3 % (0.0-1.0); EOSINOPHILS # (AUTO) 0.2 (0.0-0.4); EOSINOPHILS % 1.7 % (0.0-6.0); HEMATOCRIT 24.1 % (38.2-49.6); HEMOGLOBIN 8.2 g/dL (14.0-18.0); LYMPHOCYTES # (AUTO) 1.4 (1.0-3.2); LYMPHOCYTES % 15.9 % (18.0-39.1); MEAN CORPUSCULAR HEMOGLOBIN 31.5 pg (28-32); MEAN CORPUSCULAR VOLUME 92.7 fL (81-99); MONOCYTES # (AUTO) 0.7 (0.2-0.8); MONOCYTES % 7.8 % (4.4-11.3); NEUTROPHILS # (AUTO) 6.5 (2.1-6.9); NEUTROPHILS % 73.3 % (38.7-80.0); PLATELET COUNT 316 x10e3/uL (140-360); RED CELL DISTRIBUTION WIDTH 14.2 % (11.7-14.4)
[2019-01-29 05:35] LABS: ANION GAP 18.6 mmol/L (8-16); CALCIUM 7.9 mg/dL (8.4-10.2); CREATININE, SERUM 7.17 mg/dL (0.72-1.25); POTASSIUM 3.6 mmol/L (3.5-5.1)
[2019-01-29 05:37] LABS: AMYLASE 54 U/L (25-125); LIPASE 30 U/L (8-78)
--- NOTE | 2019-01-29 07:00 | NUR ---
Patient resting comfortably. Walking rounds done. Shift report given to oncoming nurse regarding patient's status.
--- NOTE | 2019-01-29 07:00 | NUR ---
BEDSIDE SHIFT REPORT RECEIVED FROM THE SAIL REPAIRER RN. EDUCATED PT ABOUT FALL PRECAUTIONS. CALL LIGHT WITH IN EASY REACH. INSTRUCTED PT TO USE CALL LIGHT FOR ALL THE NEEDS. PT VERBALIZED UNDERSTANDING. BED IS LOW AND LOCKED. SIDE RAILS X2. PT FAMILY AT BEDSIDE. BED ALARM IS ON. PERIODS OF CONFUSION PER THE SAIL REPAIRER REPORT. PT DENIED FURTHER NEEDS.
[2019-01-29] MEDS: INSULIN REGULAR, HUMAN 100 UNIT/1 ML 3ML VIAL SQ SCH ×4 (07:30→19:51)
[2019-01-29] MEDS ORDERED: NON-FORMULARY MEDICATION ([Folic Acid] 1 MG) PO SCH (09:00)
[2019-01-29] MEDS ORDERED: NON-FORMULARY MEDICATION (Escitalopram Oxalate 20 MG) PO SCH (09:00)
[2019-01-29] MEDS ORDERED: NON-FORMULARY MEDICATION (Atorvastatin Calcium 40 MG) PO SCH (09:00)
[2019-01-29] MEDS ORDERED: NON-FORMULARY MEDICATION ([Tamsulosin] 0.4 MG) PO SCH (09:00)
[2019-01-29] MEDS ORDERED: AMIODARONE HCL 200 MG PO SCH (09:00)
[2019-01-29] MEDS: AMIODARONE HCL 200 MG TAB PO SCH (09:02)
[2019-01-29] MEDS: FOLIC ACID 1 MG TAB PO SCH (09:02)
[2019-01-29] MEDS: ISOSORBIDE MONONITRATE 30 MG TAB CR PO SCH (09:03)
[2019-01-29] MEDS: ESCITALOPRAM OXALATE 10 MG TAB PO SCH (09:04)
[2019-01-29] MEDS: METOPROLOL TARTRATE 50 MG TAB PO SCH ×2 (09:06→16:34)
[2019-01-29] MEDS: CLOPIDOGREL BISULFATE 75 MG TAB PO SCH (09:07)
[2019-01-29] MEDS: AMLODIPINE BESYLATE 5 MG TAB PO SCH ×2 (09:07→20:10)
[2019-01-29] MEDS: RANOLAZINE 500 MG TABSR PO SCH ×2 (09:08→20:10)
[2019-01-29] MEDS: FENOFIBRATE 48 MG TAB PO SCH (09:09)
[2019-01-29] MEDS: PANTOPRAZOLE 40 MG 10ML VIAL IV SCH ×2 (09:09→20:10)
[2019-01-29] MEDS: CARBAMAZEPINE 200 MG TAB PO SCH ×2 (09:09→20:10)
[2019-01-29] MEDS: BUPROPION HCL 150 MG TABCR PO SCH (09:09)
[2019-01-29] MEDS ORDERED: SODIUM CHLORIDE 0.9% 1000ML 1,000 ML ONE (10:43)
--- NOTE | 2019-01-29 10:45 | NUR ---
CLINICAL RESEARCH ASSISTANT AT BEDSIDE.
[2019-01-29] MEDS ORDERED: ALBUMIN 25% 12.5GM 0.25 GM/ML BTL IV PRN (11:00)
[2019-01-29] MEDS ORDERED: SODIUM CHLORIDE 0.9% 1000ML 2,000 ML IV PRN (11:00)
[2019-01-29] MEDS ORDERED: MANNITOL 25% 12.5GM/50 ML VIAL IV PRN (11:00)
[2019-01-29] MEDS ORDERED: SODIUM CHLORIDE 0.9% 250ML 500 ML IV PRN (11:00)
[2019-01-29] MEDS ORDERED: CLONIDINE HCL 0.1 MG TAB PO PRN (11:15)
--- NOTE | 2019-01-29 11:23 | NUR ---
WANTS TO RETURN WHEN HER DAUGHTER IS HERE, EXPECTED TO COME IN THE AFTERNOON
--- NOTE | 2019-01-29 11:30 | NUR ---
PT IS NOT EATING DUE TO DIALYSIS. PER THE FAMILY, PT WILL TRY TO EAT WHEN DIALYSIS FINISH AT 3 PM. INSULIN NOT GIVEN.
--- NOTE | 2019-01-29 11:54 | Progress Note ---
DATE: CONSULTANTS: Dr. Monzon with Nephrology, Dr. Serrano with GI, and Dr. Dayday Wilks with Surgery. CHIEF COMPLAINT: Generalized weakness, nausea, vomiting, and chronic back pain. SUBJECTIVE: The patient was seen in bed with no acute distress. HD is in progress. He denies any abdominal pain, no nausea, vomiting, or shortness of breath overnight. at the bedside. Discussed plan of care with her and daughter. PHYSICAL EXAMINATION: VITAL SIGNS: Temperature 97.9, pulse 54, blood pressure is 168/78, pulse ox is 95% on room air. GENERAL: No acute distress. HEENT: Normocephalic, atraumatic. NECK: Supple and midline. LUNGS: Decreased breath sounds. CARDIOVASCULAR: Regular rate and rhythm. GI: Soft and nontender. NEUROLOGIC: Alert, awake, oriented x2 to 3. He is forgetful and at times does not know where he is. MUSCULOSKELETAL: Moves all extremities, but weak. SKIN: Dry and intact. LABORATORY DATA: WBC 8.82, hemoglobin 8.2, hematocrit 24. Sodium 130, CO2 of 25, BUN is 39, creatinine 7.17, glucose 80, calcium 7.9, amylase 54, lipase 3.0. IMAGING: HIDA scan showed filling of the gallbladder, acute cystic duct obstruction/acute cholecystitis with decreased ejection fraction of 26%. X-ray of thoracic spine showed some degenerative changes, but no acute fracture. IMPRESSION AND PLAN: 1. Generalized weakness due to dehydration/nausea, vomiting. We will continue Zofran as needed. GI has been consulted. CT has been noted. 2. Questionable acute cholecystitis. HIDA scan noted. Bilirubin is now normal. Lipase and amylase are within normal limits. Dr. Naylor has been consulted. 3. Hyponatremia. Slightly improving. 4. History of congestive heart failure. Echo with EF of 60%. Likely diastolic. 5. Hypertension. We will resume Norvasc and metoprolol. We will add clonidine p.r.n. 6. History of atrial fibrillation. Currently in sinus rhythm. We will continue metoprolol and amiodarone. He is not on anticoagulation due to anemia. 7. Diabetes type 2. We will continue sliding scale insulin coverage. 8. End-stage renal disease. Nephrology consulted for dialysis TTS. 9. History of CAD post CABG. We will continue home medications. No chest pain. 10. History of seizure disorder. We will continue Tegretol. 11. History of benign prostatic hyperplasia. We will continue Flomax. 12. Anemia of chronic disease. We will continue to monitor hemoglobin closely. Hemoglobin is 8.2 today. 13. Forgetfulness. We will obtain CT of brain. 14. Debility. We will consult Physical Therapy to evaluate and treat. Family does not want SNF, has home health for physical therapy. 15. Deep vein thrombosis prophylaxis. SCDs. No chemical anticoagulation due to anemia. Dictated by CHLOE Almazan Lenka Steen MD MY/MODL /[id number]
--- NOTE | 2019-01-29 13:34 | NUR ---
SENT TO R1 FOR REVIEW.
[2019-01-29] MEDS ORDERED: EPOETIN ALFA 10000 UNIT/ML VIAL SC ONE (15:00)
--- NOTE | 2019-01-29 15:01 | Progress Note ---
DATE: 01/29/2019 SUBJECTIVE: Seen on dialysis, tolerating procedure. He is somewhat forgetful, slow to talk that is being investigated. OBJECTIVE: VITAL SIGNS: Temperature 97.5, pulse 61, blood pressure 142/64. CHEST: Clear. ABDOMEN: Soft. EXTREMITIES: No edema. VASCULAR: Patent left upper extremity AV fistula. LABORATORY DATA: Hemoglobin is 8.2. K 3.6, creatinine 7.1, and BUN 30. ASSESSMENT: 1. End-stage renal disease, diabetic, hypertensive, end-organ damage, and loss of memory/confusion. 2. Nausea and vomiting, seems improved. PLAN: Hemodialysis today, 4-hour run, 2 to 3 L fluid removal, 3 potassium bath, blood flow rate 350 mL/minute, dialysate flow rate 700 mL/minute, and F160 filter. We will follow along. MD PAULINE Griffith/LYNN /[id number]
--- NOTE | 2019-01-29 15:13 | NUR ---
DIALYSIS COMPLETED. 2.5 L REMOVED PER LOGGING EQUIPMENT MECHANIC.
--- NOTE | 2019-01-29 16:38 | NUR ---
PT IS HIGH FALL RISK. PT SITTING ON A CHAIR AFTER PHYSICAL THERAPY. INFORMED PT AND FAMILY ABOUT FALL PRECAUTIONS. INSTRUCTED TO CALL FOR ANY NEEDS. CALL LIGHT WITH IN EASY REACH. PT AND FAMILY VERBALIZED UNDERSTANDING.
--- NOTE | 2019-01-29 17:10 | NUR ---
PT OFF UNIT FOR CT IN SAFE CONDITION.
--- NOTE | 2019-01-29 17:40 | NUR ---
PT BACK TO UNIT. DENIES NEEDS AT THIS TIME. FAMILY MEMBER AT BEDSIDE.
--- NOTE | 2019-01-29 17:47 | Diagnostic Imaging Report ---
Exam: Head CT without contrast History: Altered mental status Comparison studies: None Technique: Axial images were obtained from the skull base to the vertex. Coronal and sagittal images reconstructed from the axial data. Dose modulation, iterative reconstruction, and/or weight based adjustment of the mA/kV was utilized to reduce the radiation dose to as low as reasonably achievable. Radiation dose: Total DLP: 2073 mGy*cm. Estimated effective dose: DLP x 0.015 Intravenous contrast: None Findings: Scalp: No abnormalities. Bones: No fractures, blastic or lytic lesions. Brain sulci: Mild prominent. Ventricles: Mild compensatory dilatation.. No hydrocephalus. Extra-axial spaces: No masses, no fluid collection. Parenchyma: Chronic left parietal infarct with encephalomalacia and gliosis within the left superior parietal lobule and left precuneus gyrus. No mass, acute hemorrhage or acute cortical insults. Chronic lacunar infarcts in the left striatocapsular region and left subinsular white matter. Ill-defined and confluent hypodensities in the supratentorial white matter are nonspecific but are most compatible with chronic microvascular ischemic changes. Sellar/suprasellar region: No abnormalities. Craniocervical junction: Patent foramen magnum. No Chiari one malformation. Incidental findings: Opacified left posterior ethmoid air cell with inspissated secretions. Atherosclerotic calcifications in the carotid siphons and intradural vertebral arteries. IMPRESSION: No acute intracranial abnormalities. Chronic findings: 1. Moderate generalized parenchymal volume loss. 2. Old left parietal infarct. 3. Moderate chronic microvascular ischemic changes with chronic left striatocapsular and subinsular lacunar infarcts. Signed by: Dr. Efe Priest M.D. on 01/29/2019 5:44 PM
--- NOTE | 2019-01-29 17:50 | NUR ---
PT VOIDING IN DIAPER.
--- NOTE | 2019-01-29 18:30 | NUR ---
BLADDER SCAN PERFORMED. 68 ML NOTED
--- NOTE | 2019-01-29 19:00 | NUR ---
Patient visited in room during nursing rounds. Patient alert and oriented x3. Taiwanese speaking and understands little kyrgyz. at bedside. Pt had hemodialysis today and access is AV fistula on left forearm. Pt incontinent and oliguric in diaper. Otherwise, condition stable. Will monitor pt closely.
--- NOTE | 2019-01-29 19:00 | NUR ---
BEDSIDE SHIFT REPORT GIVEN TO THE WEB APPLICATIONS DEVELOPER RN. PT DENIED FURTHER NEEDS. FAMILY AT BEDSIDE.
[2019-01-29 19:42] LABS: ALBUMIN 3.1 g/dL (3.5-5.0); BILIRUBIN,DIRECT 0.2 mg/dL (0.0-0.5)
--- NOTE | 2019-01-29 19:52 | Consultation ---
DATE OF CONSULTATION: 01/29/2019 CHIEF COMPLAINT: Intractable nausea and vomiting. HISTORY OF PRESENT ILLNESS: The patient is a 73-year-old male with progressive nausea and intractable vomiting triggered by coughing in the last several days. The patient's family has noted increased weakness and shakiness with walking and the patient was admitted for workup with HIDA scan showing borderline ejection fraction of 26% on the HIDA scan. PAST MEDICAL HISTORY: Significant for: 1. Coronary artery disease. 2. End-stage renal disease, on dialysis. 3. Hypertension. 4. Diabetes. 5. Atrial fibrillation. 6. Seizure disorder. PAST SURGICAL HISTORY: Positive for coronary artery bypass, appendectomy, hip replacement. ALLERGIES: THE PATIENT HAS NO DRUG ALLERGIES. SOCIAL HABITS: No history of alcohol abuse or smoking. REVIEW OF SYSTEMS: As mentioned. No chest pain. No shortness of breath. Mild cough. No fever or chills. PHYSICAL EXAMINATION: VITAL SIGNS: Stable. He is afebrile. GENERAL: The patient is awake and alert, in mild discomfort. HEENT: Sclerae are nonicteric. NECK: Supple. LUNGS: Clear. HEART: Irregular rate and rhythm. No murmurs. ABDOMEN: Soft and nontender. No guarding. EXTREMITIES: No cyanosis or edema. LABORATORY DATA: His INR is1.0. White cell count is 8, hemoglobin of 8, platelet count of 316 with a creatinine of 7. Liver function panel is unremarkable with lipase of 30. CT of the abdomen show gallbladder sludge without evidence of cholecystitis. Possible proximal right ureteral stenosis. HIDA scan showed ejection fraction of the gallbladder at 26%. No cystic duct obstruction. ASSESSMENT: Intractable nausea and vomiting in patient with end-stage renal disease on dialysis with CT scan showing possible right ureteral stricture. PLAN: Diet as tolerated. Urological input beneficial. Efe Naylor MD DNPankaj/MODL /[id number]
[2019-01-29] MEDS: TAMSULOSIN HCL 0.4 MG CAP PO SCH (20:10)
[2019-01-29] MEDS: ATORVASTATIN 40 MG TAB PO SCH (20:10)
--- NOTE | 2019-01-29 23:50 | NUR ---
Nurse (Srini) attempted to call Lenka Hobbs (attending MD) to notify of patient's elevated BP (175/73) but no response. Left voice message and awaiting on MD call back.
[2019-01-30] VITALS (9 sets, daily range): BP systolic 103–175; BP diastolic 62–77
--- NOTE | 2019-01-30 00:48 | NUR ---
Dr. Margarito Serrano came and visited pt in room. MD aware of pt condition.
--- NOTE | 2019-01-30 01:03 | NUR ---
Lenka Hobbs called back and aware of elevated BP (175/73) and HR of 113. MD ordered to increase dose of Clonidine from 0.1 mg to 0.2 mg q4hr prn for SBP > 170.
[2019-01-30] MEDS: CLONIDINE HCL 0.1 MG TAB PO PRN (01:28)
--- NOTE | 2019-01-30 07:00 | NUR ---
BEDSIDE SHIFT REPORT RECEIVED FROM THE IDENTITY MANAGEMENT CONSULTANT RN. EDUCATED PT ABOUT FALL PRECAUTIONS. CALL LIGHT WITH IN EASY REACH. INSTRUCTED PT TO USE CALL LIGHT FOR ALL THE NEEDS. PT VERBALIZED UNDERSTANDING. BED IS LOW AND LOCKED. SIDE RAILS X2. PT AT BEDSIDE. BED ALARM IS ON. PT DENIED FURTHER NEEDS.
[2019-01-30] MEDS: INSULIN REGULAR, HUMAN 100 UNIT/1 ML 3ML VIAL SQ SCH ×4 (07:30→21:00)
--- NOTE | 2019-01-30 07:30 | NUR ---
PER THE FAMILY, PT TAKES ESCITALPRAM AT NIGHT 2100 DAILY PO.
[2019-01-30] MEDS: AMIODARONE HCL 200 MG TAB PO SCH (07:44)
[2019-01-30] MEDS: ISOSORBIDE MONONITRATE 30 MG TAB CR PO SCH (07:44)
[2019-01-30] MEDS: FOLIC ACID 1 MG TAB PO SCH (07:44)
[2019-01-30] MEDS: AMLODIPINE BESYLATE 5 MG TAB PO SCH ×2 (07:45→21:42)
[2019-01-30] MEDS: CLOPIDOGREL BISULFATE 75 MG TAB PO SCH (07:45)
[2019-01-30] MEDS: METOPROLOL TARTRATE 50 MG TAB PO SCH ×2 (07:45→16:10)
[2019-01-30] MEDS: CARBAMAZEPINE 200 MG TAB PO SCH ×2 (07:46→21:42)
[2019-01-30] MEDS: RANOLAZINE 500 MG TABSR PO SCH ×2 (07:46→21:42)
[2019-01-30] MEDS: BUPROPION HCL 150 MG TABCR PO SCH (07:47)
[2019-01-30] MEDS: FENOFIBRATE 48 MG TAB PO SCH (07:47)
[2019-01-30] MEDS: PANTOPRAZOLE 40 MG 10ML VIAL IV SCH ×2 (07:48→21:42)
[2019-01-30 11:39] LABS: BILIRUBIN,URINE SMALL (NEGATIVE); CLARITY,URINE CLEAR (CLEAR); COLOR,URINE YELLOW (YELLOW); KETONES,URINE NEGATIVE (NEGATIVE); LEUKOCYTE ESTERASE ,URINE TRACE (NEGATIVE); NITRITE,URINE NEGATIVE (NEGATIVE); URINE UROBILINOGEN 0.2 mg/dL (0.2 - 1)
[2019-01-30 11:40] LABS: PROTEIN,URINE DIPSTICK 3+ (NEGATIVE)
[2019-01-30 11:49] LABS: AMORPHOUS SEDIMENT,URINE MANY (FEW); BACTERIA,URINE MANY /HPF; EPITHELIAL CELLS,URINE MANY /LPF; RBC,URINE >50 /HPF (0-5); WBC,URINE (MAN) 21-50 /HPF (0-5)
--- NOTE | 2019-01-30 18:21 | Progress Note ---
DATE: 01/30/2019 CONSULTANTS: 1. Dr. Monzon with Nephrology. 2. Dr. Serrano with GI. 3. Dr. Efe Naylor with Surgery. 4. Dr. Schneider with Urology. CHIEF COMPLAINT: Generalized weakness, nausea, vomiting, and chronic back pain. SUBJECTIVE: The patient was seen sitting up in bed eating with at bedside. Appears to be in no acute distress. No events overnight noted. PHYSICAL EXAMINATION: VITAL SIGNS: Temperature 98.8, pulse is 59, respirations 16, blood pressure is 170/77, pulse ox is 98% on room air. GENERAL: No acute distress. HEENT: Normocephalic, atraumatic. NECK: Supple and midline. LUNGS: Decreased breath sounds. CARDIOVASCULAR: Regular rate and rhythm. GI: Soft and nontender. NEUROLOGIC: Alert, awake, and oriented x1 to 2. He is forgetful and disoriented at times. MUSCULOSKELETAL: Moves all extremities, but with generalized weakness. SKIN: Dry and intact. LABORATORY DATA: Noted. IMAGING DATA: CT brain showed no acute intracranial abnormalities, it showed old left parietal infarct and moderate generalized parenchymal volume loss. IMPRESSION AND PLAN: 1. Generalized weakness due to dehydration. We will continue with Zofran. GI has been consulted. CT has been noted. 2. Cholecystitis. HIDA scan showed chronic cholecystitis. Bilirubin is now normal. Lipase and amylase are within normal limits. Dr. Naylor has been consulted. 3. Hyponatremia, slightly improving. 4. History of diastolic congestive heart failure. Echo with EF of 60%. 5. Hypertension. We will resume Norvasc and metoprolol. We will add clonidine p.r.n. 6. History of atrial fibrillation, currently in sinus rhythm, sinus bradycardia. We will continue on metoprolol and amiodarone. He was not on p.o. anticoagulation for cerebrovascular accident prophylaxis due to anemia. 7. Diabetes type 2. Continue sliding scale insulin coverage. 8. End-stage renal disease. Nephrology consulted for dialysis, Thursday, and Thursday. 9. History of coronary artery disease post coronary artery bypass grafting. We will continue home medication. No chest pain. 10. History of seizures. We will continue with Tegretol. 11. History of benign prostatic hyperplasia. We will continue with Flomax. 12. Anemia of chronic disease. We will continue to monitor hemoglobin and transfuse as needed. 13. Altered mental status. CT brain was negative for acute process. 14. Right renal pelvocaliectasis and proximal . Nonobstructing stone or lesion. Urology has been consulted as this may be the source of his pain. 15. Debility. Physical therapy has been consulted to evaluate and treat. Family does not want residential facility at this time. 16. Deep vein thrombosis prophylaxis. SCDs. No chemical anticoagulation due to anemia. 17. Plan is to continue current treatment. Physical therapy and pending Urology evaluation. Dictated by CHLOE Almazan Lenka Steen MD MY/MODL /[id number]
--- NOTE | 2019-01-30 19:00 | NUR ---
BEDSIDE SHIFT REPORT GIVEN TO THE DEVELOPMENT EDUCATOR RN. PT DENIED FURTHER NEEDS. PT AT BEDSIDE.
--- NOTE | 2019-01-30 19:25 | NUR ---
Patient received sitting up in bed. at bedside. AAO x 3. No acute distress noted . Safety measures implemented. Patient instructed to call for assistance when needed. Call light within reach.
[2019-01-30] MEDS ORDERED: ESCITALOPRAM OXALATE 10 MG TAB PO SCH (21:00)
[2019-01-30] MEDS: ATORVASTATIN 40 MG TAB PO SCH (21:42)
[2019-01-30] MEDS: TAMSULOSIN HCL 0.4 MG CAP PO SCH (21:42)
[2019-01-31] VITALS: BP 188/81
[2019-01-31] MEDS: CLONIDINE HCL 0.1 MG TAB PO PRN (00:24)
[2019-01-31 04:00] VITALS: BP 158/72
[2019-01-31 05:25] LABS: BASOPHILS # (AUTO) 0.1 (0.0-0.1); BASOPHILS % 0.6 % (0.0-1.0); EOSINOPHILS # (AUTO) 0.2 (0.0-0.4); EOSINOPHILS % 2.5 % (0.0-6.0); HEMATOCRIT 26.2 % (38.2-49.6); HEMOGLOBIN 8.5 g/dL (14.0-18.0); LYMPHOCYTES # (AUTO) 1.5 (1.0-3.2); LYMPHOCYTES % 18.1 % (18.0-39.1); MEAN CORPUSCULAR HEMOGLOBIN 31.5 pg (28-32); MEAN CORPUSCULAR HGB CONC 32.4 g/dL (31-35); MONOCYTES # (AUTO) 0.9 (0.2-0.8); MONOCYTES % 10.3 % (4.4-11.3); NEUTROPHILS # (AUTO) 5.7 (2.1-6.9); NEUTROPHILS % 67.7 % (38.7-80.0); PLATELET COUNT 295 x10e3/uL (140-360); RED CELL DISTRIBUTION WIDTH 14.9 % (11.7-14.4)
[2019-01-31 05:55] LABS: ANION GAP 15.3 mmol/L (8-16); CALCIUM 7.6 mg/dL (8.4-10.2); CREATININE, SERUM 6.06 mg/dL (0.72-1.25); POTASSIUM 3.3 mmol/L (3.5-5.1)
--- NOTE | 2019-01-31 07:00 | NUR ---
BEDSIDE SHIFT REPORT RECEIVED FROM THE VENDING MACHINE SERVICER RN. EDUCATED PT ABOUT FALL PRECAUTIONS. CALL LIGHT WITH IN EASY REACH. INSTRUCTED PT TO USE CALL LIGHT FOR ALL THE NEEDS. PT VERBALIZED UNDERSTANDING. BED IS LOW AND LOCKED. SIDE RAILS X2. PT AT BEDSIDE. BED ALARM IS ON. PT DENIED FURTHER NEEDS.
[2019-01-31] MEDS: INSULIN REGULAR, HUMAN 100 UNIT/1 ML 3ML VIAL SQ SCH ×2 (07:30→11:45)
[2019-01-31 08:13] VITALS: BP 156/74
[2019-01-31 08:40] VITALS: BP 156/74
[2019-01-31] MEDS: FOLIC ACID 1 MG TAB PO SCH (09:09)
[2019-01-31] MEDS: AMIODARONE HCL 200 MG TAB PO SCH (09:09)
[2019-01-31] MEDS: METOPROLOL TARTRATE 50 MG TAB PO SCH (09:10)
[2019-01-31] MEDS: ISOSORBIDE MONONITRATE 30 MG TAB CR PO SCH (09:10)
[2019-01-31] MEDS: CARBAMAZEPINE 200 MG TAB PO SCH (09:11)
[2019-01-31] MEDS: RANOLAZINE 500 MG TABSR PO SCH (09:11)
[2019-01-31] MEDS: FENOFIBRATE 48 MG TAB PO SCH (09:11)
[2019-01-31] MEDS: CLOPIDOGREL BISULFATE 75 MG TAB PO SCH (09:11)
[2019-01-31] MEDS: BUPROPION HCL 150 MG TABCR PO SCH (09:12)
[2019-01-31] MEDS: PANTOPRAZOLE 40 MG 10ML VIAL IV SCH (09:18)
[2019-01-31] MEDS: AMLODIPINE BESYLATE 5 MG TAB PO SCH (10:30)
[2019-01-31 11:55] VITALS: BP 157/73
--- NOTE | 2019-01-31 12:30 | NUR ---
Spoke with pt's at bedside regarding dc plan. She asked that CM speak with her daughter on the phone. Pt's called daughter on phone. She informed CM that family does not want SNF, would like for pt to return home with home health on discharge. Stated that pt is currently with [facility] and would like to resume services with them. Pt's signed choice letter. Signed copy placed in chart. Copy to pt's .
--- NOTE | 2019-01-31 15:15 | NUR ---
OKAY TO D/C PT PER VIVI YOO. NO RX GIVEN. OKAY TO D/C PT PER CASE MANAGEMENT.
--- NOTE | 2019-01-31 15:34 | NUR ---
WOUND CARE CONSULT 73 YO MALE ALTERED MENTAL STATUS AIDAN 18 ON CONSERVATIVE PUP ON ALTERNATION PRESSURE MATTRESS PATIENT PRESENTS WITH STAGE 2 ULCERATION TO RT BUTTOCKS RECOMMENDATIONS: NURSING TO APPLY DAILY VENELEX OINTMENT TO STAGE 2 RIGHT BUTTOCKS Addendum: 01/31/19 at 1537 by Torsten Jackson RN Amended: Links added.
--- NOTE | 2019-01-31 15:45 | NUR ---
PT DISCHARGED HOME SAFELY WITH FAMILY. PT ESCORTED VIA WHEEL CHAIR TO THE PRIVATE AUTO AT THE FRONT ENTRANCE. TELE AND IV REMOVED. TIP INTACT. DRESSING APPLIED. PT DENIED FURTHER NEEDS.
--- NOTE | 2019-01-31 15:54 | NUR ---
CM called and spoke with rep Homer with [facility] and verified that pt is currently on service with them. Informed him that pt is discharging today and CM will send resumption order and clinicals. States they should be able to see pt tomorrow. HOME HEALTH DISCHARGE NOTE PATIENT ADDRESS WHERE SERVICE WILL BE RECEIVED: [address] [place] [address] PATIENT CONTACT NUMBER: [phone] NAME OF HOME HEALTH COMPANY: [facility] TELEPHONE/FAX NUMBER OF COMPANY: P [phone] / F [phone] ADDRESS OF [employer]: [address] [place] [address] [address] [address] SERVICES TO RECEIVE: SN, PT/OT ANTICIPATED DATE SERVICES WILL BEGIN: February 01, 2019 Please call the company above if you have not received a call to schedule a home visit within 24 hours of discharge.
[2019-01-31] MEDS ORDERED: ESCITALOPRAM OXALATE 10 MG TAB PO SCH (21:00)
--- NOTE | 2019-02-01 01:54 | Discharge Summary ---
PRIMARY CARE PHYSICIAN: Dr. Laguerre at [facility]. FINAL DIAGNOSES: 1. Generalized weakness due to dehydration. 2. Chronic cholecystitis. 3. Hyponatremia. 4. History of diastolic congestive heart failure. 5. Hypertension. 6. History of atrial fibrillation. 7. Diabetes. 8. End-stage renal disease on dialysis, TTS. 9. History of coronary artery disease, post coronary artery bypass grafting. 10. History of seizures. 11. History of benign prostatic hyperplasia. 12. Anemia of chronic disease. 13. Altered mental status at baseline. 14. Right renal pelvic caliectasis. 15. Debility. CONSULTANTS: 1. Dr. Monzon with Nephrology. 2. Dr. Serrano with GI. 3. Dr. Figueredo with Surgery. 4. Dr. Schneider with Urology. PROCEDURES: None. HISTORY: Per HPI. HOSPITAL COURSE: This is a 73-year-old male, who presented with increased generalized weakness, nausea, vomiting, and chronic back pain. Chest x-ray was showed borderline cardiomegaly and pulmonary vascular congestion likely due to fluid in the lungs. He had CT of the abdomen and pelvis, which showed sludge in the gallbladder lumen without evidence of cholecystitis and mild right renal pelvic caliectasis with proximal ureterectasis, which tapers at the proximal ureter without an obstructing calculus or lesion. HIDA scan was done to evaluate for acute cholecystitis, but it showed 26% ejection fraction, which indicates chronic cholecystitis or gallbladder dyskinesia. No immediate need for gallbladder removal at this time. CT brain showed no acute intracranial abnormalities that showed old left parietal infarct and moderate chronic microvascular ischemic changes with chronic left striatocapsular and subinsular lacunar infarct. Urology was consulted and no further intervention needed at this time, may follow up as outpatient for further evaluation. Discussed with family regarding placement to SNF or rehabilitation, but family wants to take him home as they already have home health set up for physical therapy. PHYSICAL EXAMINATION: VITAL SIGNS: Temperature 97.7, pulse is 59, respirations 20, blood pressure 157/73, pulse ox is 97% on room air. GENERAL: No acute distress. HEENT: Normocephalic, atraumatic. NECK: Supple. LUNGS: Clear to auscultation. CARDIOVASCULAR: Regular rate and rhythm. GI: Soft and nontender. NEUROLOGIC: Alert, awake, and oriented x1-2. MUSCULOSKELETAL: Moves all extremities, but with generalized weakness. SKIN: Dry and intact. CONDITION AT DISCHARGE: Stable. DISCHARGE MEDICATIONS: See medication reconciliation list. FOLLOWUP: Follow up with PCP with Urology, Nephrology in 1 to 2 weeks. TIME SPENT: Total time of discharge is 38 minutes. Dictated by CHLOE Almazan Ludyching Larry Steen MD MY/MODL /[id number] cc: Joo Laguerre MD
[2019-02-01] MEDS ORDERED: BALSAM PERU/CASTOR OIL 60 GM OINT...G. TP SCH (09:00)
== END 2019-01-31 15:53 | disposition home health service (06) | DRG 640 ==
LOC: ER 19:12 → ERHOLD 01-28 04:20 → MED/SURG2 01-28 04:35 → OBSVTOIN 01-30 12:44
PROVIDERS: ADMIT Internal Medicine; ATTEND Internal Medicine
PROC: 5A1D70Z Performance of Urinary Filtration, Intermittent, Less than 6 Hours Per Day (ICD-10-PCS; principal; 2019-01-29)
DX: E86.0 Dehydration (principal); N18.6 End stage renal disease; I13.2 Hypertensive heart and chronic kidney disease with heart failure and with stage 5 chronic kidney disease, or end stage renal disease; I50.32 Chronic diastolic (congestive) heart failure; K81.1 Chronic cholecystitis; E87.1 Hypo-osmolality and hyponatremia; E87.6 Hypokalemia; E11.22 Type 2 diabetes mellitus with diabetic chronic kidney disease; I48.91 Unspecified atrial fibrillation; I25.10 Atherosclerotic heart disease of native coronary artery without angina pectoris; G40.909 Epilepsy, unspecified, not intractable, without status epilepticus; R41.82 Altered mental status, unspecified; N40.0 Benign prostatic hyperplasia without lower urinary tract symptoms; D63.8 Anemia in other chronic diseases classified elsewhere; R53.81 Other malaise; L89.312 Pressure ulcer of right buttock, stage 2; N13.5 Crossing vessel and stricture of ureter without hydronephrosis; E11.319 Type 2 diabetes mellitus with unspecified diabetic retinopathy without macular edema; Z99.2 Dependence on renal dialysis; Z95.1 Presence of aortocoronary bypass graft; I25.2 Old myocardial infarction; Z79.02 Long term (current) use of antithrombotics/antiplatelets
CPT/HCPCS: 36415; 70450; 71045; 72070; 74177; 78227; 80048; 80053; 80076; 81001; 82140; 82150; 82550; 82553; 82948; 83690; 83735; 83880; 84484; 85025; 85610; 85730; 86704; 87086; 87350; 93005; 93306; 97139; 99284; A9537; G0378; J1817; J1940; J2405; J7030; Q4081; Q9967